=== PATIENT | female | born 1945 | race Caucasian/White ===

== ENCOUNTER 2023-10-29 14:18 | Emergency (ER) | payer MEDICARE, SELFPAY ==
[2023-10-29 14:19] VITALS: BP 141/66; PULSE 93; RESP 16; TEMP 36.4; O2SAT 92; O2SAT 98; BMI 19.1
--- NOTE | 2023-10-29 15:16 | EKG12_ITS ---
Test Reason : Blood Pressure : / mmHG Vent. Rate : 092 BPM Atrial Rate : 092 BPM P-R Int : 114 ms QRS Dur : 076 ms QT Int : 332 ms P-R-T Axes : 089 064 066 degrees QTc Int : 410 ms Normal sinus rhythm Minimal voltage criteria for LVH, may be normal variant ( Sokolow-Engle ) Borderline ECG Confirmed by CAM STEPHENSON MD ([id number]), editor house organ BISI KHAN ([id number]) on 10/31/2023 6:10:07 AM Referred By: Confirmed By:CAM STEPHENSON MD
--- NOTE | 2023-10-29 15:17 | EX.ED.DYSGE1 ---
HPI <MANI Mock - Last Filed: 10/29/23 17:54> History of Present Illness Chief Complaint: Alt LOC Narrative Narrative: Patient is a 78-year-old female with history of respiratory failure on 2 to 5 L of nasal cannula oxygen daily, hypertension, hyperlipidemia who presents to the emergency department for lethargic, confusion. Per the son, the patient supposed to be on BiPAP 4 hours daily, however this has not been happening. They started giving the patient breathing treatments last evening. Patient denies any chest pain, patient denies any worsening shortness of breath. PFSH <MANI Mock - Last Filed: 10/29/23 17:54> PFSH Allergy/AdvReac Type Severity Reaction Status Date / Time iron [From Venofer] Allergy Intermediate NEEDS Verified 10/29/23 14:25 FOLLOW-UP varenicline [From Chantix] Allergy Intermediate NEEDS Verified 10/29/23 14:25 FOLLOW-UP Social History Smoking Status: Former smoker ROS <MANI Mock - Last Filed: 10/29/23 17:54> ROS ED ROS Narrative Constitutional: Negative for fever, chills, weight loss, weakness Eyes: Negative for vision loss, vision change, double vision ENT: Negative for any sore throat, ear pain, congestion Cardiovascular: Negative for any chest pain, tightness, palpitations Respiratory: Negative for any cough, sputum production, hemoptysis, dyspnea, dyspnea on exertion, orthopnea Gastrointestinal: Negative for any abdominal pain, nausea, vomiting, diarrhea, constipation, blood in stool, blood in vomit : Negative for any urinary frequency, dysuria, retention, blood in urine Muscle skeletal: Negative for any myalgias, arthralgias, neck pain, back pain Neurological: Negative for any headache, syncope, paresthesias, dizziness. Patient states that she can tell she is not thinking clearly Skin: Negative for any rashes, lumps, itching, abrasions, lacerations Psychiatric: Negative for any depression, anxiety, stress, suicidal ideation, homicidal ideation Hematologic: Negative for any easy bruising, excessive bruising, easy bleeding Allergies: Negative for any eczema, hives, rash EXAM <MANI Mock Last Filed: 10/29/23 17:54> Physical Exam Narrative Exam Narrative: Vital signs reviewed. Patient is cachectic appearing, vital signs are stable on monitor. Patient is alert and orient x 4 here. HEET: Head normocephalic atraumatic, TMs clear bilaterally. Posterior pharynx is clear, dry mucous membranes. Nares clear bilaterally. Neck: Supple with no lymphadenopathy or tenderness. No signs of meningismus. Cardiac: Regular rate and rhythm no murmurs gallops or rubs, equal peripheral pulses bilaterally. Respiratory: Diminished lung sounds in the bases. Slight expiratory wheeze to the left upper lobe. No chest tenderness. Abdomen: Soft, nontender, nondistended. No abdominal bruit or pulsatile masses. No hepatosplenomegaly Extremities: No peripheral edema, no signs of gross trauma or deformity. Active full range of motion of all extremities. Neuro: Cranial nerves II through XII intact, no focal neurological deficits. Skin: Clean dry and intact with no rash, purpura, petechiae, vesicles or pustules. Backs/flank: No CVA tenderness, no midline spinal tenderness, no deformity. Psych: Normal mood and affect. No SI, HI or acute psychosis. Const Vital Signs: 10/29/23 14:19 Temperature 97.5 F L Temperature Source Temporal Pulse Rate 93 Respiratory Rate 16 Blood Pressure 141/66 H Blood Pressure Mean 91 Pulse Ox 98 Oxygen Delivery Method Nasal Cannula Oxygen Flow Rate (L/min) 2 Positive cachectic General Appearance ED: cachectic Nutritional Appearance: cachectic <Dr. Javan Wilkins MD - Last Filed: 10/29/23 18:18> Physical Exam Const Vital Signs: 10/29/23 14:19 Temperature 97.5 F L Temperature Source Temporal Pulse Rate 93 Respiratory Rate 16 Blood Pressure 141/66 H Blood Pressure Mean 91 Pulse Ox 98 Oxygen Delivery Method Nasal Cannula Oxygen Flow Rate (L/min) 2 MDM <MANI Mock - Last Filed: 10/29/23 17:54> [facility] Lab Data Labs: Laboratory Results - last 24 hr 10/29/23 10/29/23 15:28 16:23 WBC 4.2 L RBC 3.34 L Hgb 10.2 L Hct 32.6 L MCV 97.6 MCH 30.5 MCHC 31.3 L RDW Std Deviation 52.1 H RDW Coeff of [place] 14.6 Plt Count 214 MPV 10.6 Immature Gran % (Auto) 0.200 Neut % (Auto) 73.2 H Lymph % (Auto) 14.5 L [place] % (Auto) 9.5 Eos % (Auto) 2.1 Baso % (Auto) 0.5 Absolute Neuts (auto) 3.1 Absolute Lymphs (auto) 0.61 L Nucleated RBC % 0 Sodium 141 Potassium 4.2 Chloride 98 Carbon Dioxide 40.0 H Anion Gap 3 L BUN 7 Creatinine 0.41 L Estim Creat Clear Calc 40.07 Est GFR (MDRD) Af Amer 193 Est GFR (MDRD) Non-Af 160 BUN/Creatinine Ratio 17.1 Glucose 88 Calcium 9.3 Troponin I High Sens 20 Urine Color Yellow Urine Clarity Clear Urine pH 6.5 Ur Specific [place] 1.015 Urine Protein 100 H Urine Glucose (UA) Normal Urine Ketones Negative Urine Occult Blood 10 H Urine Nitrite Negative Urine Bilirubin Negative Urine Urobilinogen Normal Ur Leukocyte Esterase 25 H Urine RBC 0 SEEN Urine WBC 0 SEEN Ur Squamous Epith Cells 0 SEEN Urine Bacteria 0 SEEN Urine Mucus 0 SEEN ABG Data ABG results: ABG 10/29/23 15:49 Specimen Type MANPREET Sample Site Not entered O2 % 3.0 VBG pH 7.43 H VBG pO2 37 VBG HCO3 42 H VBG Total CO2 44 H VBG O2 Sat (Calc) 69 VBG Base Excess 18 H POC Mix VBG pCO2 Pt Tmp 64.1 H O2 Delivery Device Cannula Radiography Diagnostic Testing: Clinical Impression(s) from Imaging Studies Chest X-Ray 10/29/23 15:44 IMPRESSION: Hyperinflated lungs may be secondary to underlying COPD. Electronically Signed: Bernie Sapmson MD at 16:22 EST Reading Location ID and State: [facility] / [place] Tel , Service support , Brain CT 10/29/23 15:49 IMPRESSION: Small vessel ischemia. Electronically Signed: Bernie Sampson MD at 16:49 EST , Treatment and Re-Evaluation :: Patient appears to be in no obvious respiratory distress. Vital signs are stable. Patient seems to be alert and orient x 4. I will speak with the patient and she appears to understand evidence going on. Presenting to the emergency department for lethargic, confusion. Differential diagnose includes hypercapnia, hypoxia, pneumonia, UTI, other viral-like illness. Patient received some basic laboratory values, troponin, EKG. 1 view chest x-ray, patient will receive a rapid COVID/influenza, RSV. I will order a VBG to see the patient's CO2. Patient mentation remains stable, patient is alert and orient x 4. VBG shows a normal pH at 7.428, CO2 64.1, this might be baseline. O2 was 37 bicarb was 42.4. CBC was unremarkable shows slight anemia this is chronic. Chemistries were unremarkable, troponin was negative. Patient's chest x-ray showed hyperinflated lungs secondary to COPD. Patient on her 3 L is mentating well. CT scan the brain was unremarkable urinalysis was negative for any infection. I spoke with the patient again, she remained stable, she has to be eat, she like to drink water. At this time, do not believe there is any acute process. Patient will be discharged back to the facility. All questions answered, spoke with the patient's family, patient stable for discharge <Dr. Javan Wilkins MD - Last Filed: 10/29/23 18:18> [facility] Lab Data Labs: Laboratory Results - last 24 hr 10/29/23 10/29/23 15:28 16:23 WBC 4.2 L RBC 3.34 L Hgb 10.2 L Hct 32.6 L MCV 97.6 MCH 30.5 MCHC 31.3 L RDW Std Deviation 52.1 H RDW Coeff of [place] 14.6 Plt Count 214 MPV 10.6 Immature Gran % (Auto) 0.200 Neut % (Auto) 73.2 H Lymph % (Auto) 14.5 L [place] % (Auto) 9.5 Eos % (Auto) 2.1 Baso % (Auto) 0.5 Absolute Neuts (auto) 3.1 Absolute Lymphs (auto) 0.61 L Nucleated RBC % 0 Sodium 141 Potassium 4.2 Chloride 98 Carbon Dioxide 40.0 H Anion Gap 3 L BUN 7 Creatinine 0.41 L Estim Creat Clear Calc 40.07 Est GFR (MDRD) Af Amer 193 Est GFR (MDRD) Non-Af 160 BUN/Creatinine Ratio 17.1 Glucose 88 Calcium 9.3 Troponin I High Sens 20 Urine Color Yellow Urine Clarity Clear Urine pH 6.5 Ur Specific [place] 1.015 Urine Protein 100 H Urine Glucose (UA) Normal Urine Ketones Negative Urine Occult Blood 10 H Urine Nitrite Negative Urine Bilirubin Negative Urine Urobilinogen Normal Ur Leukocyte Esterase 25 H Urine RBC 0 SEEN Urine WBC 0 SEEN Ur Squamous Epith Cells 0 SEEN Urine Bacteria 0 SEEN Urine Mucus 0 SEEN ABG Data ABG results: ABG 10/29/23 15:49 Specimen Type MANPREET Sample Site Not entered O2 % 3.0 VBG pH 7.43 H VBG pO2 37 VBG HCO3 42 H VBG Total CO2 44 H VBG O2 Sat (Calc) 69 VBG Base Excess 18 H POC Mix VBG pCO2 Pt Tmp 64.1 H O2 Delivery Device Cannula Radiography Diagnostic Testing: Clinical Impression(s) from Imaging Studies Chest X-Ray 10/29/23 15:44 IMPRESSION: Hyperinflated lungs may be secondary to underlying COPD. Electronically Signed: Bernie Sampson MD at 16:22 EST , Brain CT 10/29/23 15:49 IMPRESSION: Small vessel ischemia. Electronically Signed: Bernie Sampson MD at 16:49 EST , Treatment and Re-Evaluation Comments:: I have personally performed a face to face assessment of the patient and have reviewed the SON Note. I performed a substantive portion of the visit including all aspects of the following. My mendoza findings include: History is confused for the past 2 days. Apparently just arrived at this nursing facility 2 days ago from a rehab facility where she had BiPAP for 4-8 hours/day, but now the current facility is unable to get approval for it so she has been without it. She has been getting Valium with each use of BiPAP due to being claustrophobic. Patient denies any focal complaints right now just saying that she does not feel great but she denies any dyspnea, chest tightness, nausea, vomiting, abdominal pain, headache. Exam is keenly alert, able to converse no aphasia, normal peripheral neurologic exam, neck is supple full range of motion. Lungs are clear but diminished throughout symmetrically. Heart is regular, abdomen benign. Medical Decison Making broad differential as above which I agree with. Labs, EKG, chest x-ray, urinalysis, CT of the head obtained. VBG shows neutral pH, showing that her end-tidal CO2 in the high 40s or low 50s is likely her baseline and she is compensated. BZD withdrawal is in differential, but if she is doing okay without BiPAP and not requiring benzodiazepines right now I do not know that I would necessarily give them just because of the symptoms unless she starts having more significant withdrawal symptoms such as seizures. Other additions or changes: [None] Discharge Plan Triage Chief Complaint: Alt LOC ED Midlevel Provider: Klever Reed ED Provider: Javan Wilkins Dx/Rx/DC Orders Clinical Impression: Chronic hypercapnic respiratory failure, COPD (chronic obstructive pulmonary disease) Instructions: COPD: Coping with Fatigue, Asthma and COPD Primary Care Provider: Anthony Moralez Referrals: Anthony Moralez MD [Primary Care Provider] - Activity Restrictions/Additional Instructions: Your VBG showed a CO2 of 64.1, you are alert and oriented, continue to be on your oxygen. Return for any worsening symptoms Disposition Disposition: Home, Self Care
--- NOTE | 2023-10-29 15:20 | ED.RN ---
NO OLD EKG
[2023-10-29 15:39] LABS: Absolute Lymphocyte Count 0.61 X10^3/uL (0.83-4.51); Absolute Neutrophil Count 3.1 X10^3/uL (2.0-7.7); Basophil# 0.02 X10^3/uL; Basophil% 0.5 % (0-1); Eosinophil# 0.09 X10^3/uL; Eosinophils% 2.1 % (0-5); Hematocrit 32.6 % (37-47); Hemoglobin 10.2 g/dL (12.0-15.0); Lymphocyte # 0.61 X10^3/ul (0.83-4.51); Lymphocyte % 14.5 % (19-41); Mean Corp Hgb Conc 31.3 g/dL (32-36); Mean Corpuscular Hgb 30.5 pg (27.0-32.0); Mean Corpuscular Volume 97.6 fL (81-99); Mean Platelet Vol. 10.6 fl (6.2-12.0); Monocyte% 9.5 % (0-10); NRBC Flagged by Analyzer 0 % (0-5); Neutrophil # 3.07 X10^3/uL (2.7-7.7); Neutrophil % 73.2 % (47-70); Platelet Count 214 K/mm3 (150-450); RBC Distribution Width CV 14.6 % (11.6-14.6); RBC Distribution Width SD 52.1 fl (35.1-43.9); Red Blood Count 3.34 M/mm3 (4.2-5.4); White Blood Count 4.2 K/mm3 (4.4-11.0)
--- NOTE | 2023-10-29 15:44 | RAD_ITS ---
INDICATION: shortness of breath EXAMINATION/TECHNIQUE: X-RAY - XR Chest 1 View COMPARISON: No relevant prior comparison study available FINDINGS: LUNGS: The lungs are hyperinflated. No consolidation, edema or effusion. No pneumothorax. MEDIASTINUM AND CARDIOVASCULAR STRUCTURES: Cardiac silhouette not enlarged. Central airways and mediastinal contour are unremarkable. BONES AND SOFT TISSUES: Unremarkable. RAD/Chest 1 View (Portable) IMPRESSION: Hyperinflated lungs may be secondary to underlying COPD. Electronically Signed: Bernie Sampson MD at 16:22 EST ,
--- NOTE | 2023-10-29 15:49 | CT_ITS ---
INDICATION: confusion EXAMINATION: CT BRAIN - CT Head or Brain W/O Contrast Injection TECHNIQUE: Multiple axial images were obtained of the head without intravenous contrast. A radiation dose optimization technique was used for this scan. IV Contrast dosage and agent: None. RADIATION DOSAGE (If Supplied By Facility): CTDIvol = ( 44.99 ) mGy, DLP = ( 745.49 ) mGycm COMPARISON: No relevant prior comparison study available FINDINGS: BRAIN PARENCHYMA: No intra- or extra-axial hemorrhage. There are patchy foci of low attenuation within the white matter of the cerebral hemispheres, a nonspecific finding most commonly reflecting small vessel ischemia. No evidence of acute infarct. No intracranial mass or mass effect. There is preservation of the rascon/white matter interface. Posterior fossa structures are unremarkable. CSF SPACES: Appropriate for age. No hydrocephalus. Basal cisterns are patent. CALVARIUM, SKULL BASE, PARANASAL SINUSES AND MASTOID AIR CELLS: Clear. No discrete lytic or blastic abnormalities. ORBITS: Both globes, extraocular muscles, optic nerves and retrobulbar fat appear unremarkable. ASPECTS Score for Acute Strokes: 10 CT/Brain/Head without Contrast IMPRESSION: Small vessel ischemia. Electronically Signed: Bernie Sampson MD at 16:49 EST ,
[2023-10-29 15:52] LABS: Blood Gas Specimen Type VEN; O2 Delivery Device Cannula; SITE Not entered; VBG BASE EXCESS 18 mmol/L (-1.0-3.5); VBG Bicarbonate 42 mmol/L (22-26); VBG PO2 37 mmHg (25-40); VBG SO2 69 % (50-70); VBG TCO2 44 mmol/L (23-33); VBG pCO2 64.1 mmHg (41-51); VBG pH 7.43 (7.32-7.42)
[2023-10-29 16:30] LABS: Bacteria 0 SEEN /hpf (None Seen); Mucous, Urine 0 SEEN /hpf (<or=2+); Red Blood Cells-Urine 0 SEEN /hpf (0-5); Squamous Epithelial Cells - UA 0 SEEN /hpf (5-10); White Blood Cells 0 SEEN /hpf (0-5)
[2023-10-29 16:42] LABS: Color, Urine Yellow (Yellow); Glucose, Dipstick Normal (Normal); Ketone-Dipstick Negative (Negative); Leukocyte Esterase-Dipstick 25 /ul (Negative); Nitrite-Dipstick Negative (Negative); Occult Blood-Urine 10 /ul (Negative); Protein-Dipstick 100 mg/dl (Negative); Specific Gravity, Urine 1.015 (1.002-1.030); Urine Bilirubin Dipstick Negative (Negative); Urine Clarity Clear (Clear); Urine Urobilinogen Normal (Normal); Urine pH 6.5 (5.0 - 8.0)
[2023-10-29 17:40] LABS: Anion Gap 3 (5-15); BUN 7 mg/dL (7-18); BUN/Creat Ratio 17.1 RATIO (10-20); Calcium,Total 9.3 mg/dL (8.5-10.1); Chloride 98 mmol/L (98-107); Creatinine, Serum 0.41 mg/dL (0.55-1.02); EST Glomerular Filtration Rate 160 mL/min (>60); Est Glom Filt Rate - Afr Amer 193 mL/min (>60); Estimated Creatinine Clearance 40.07 ml/min; Glucose 88 mg/dL (74-106); Potassium 4.2 mmol/L (3.5-5.1); Sodium Level 141 mmol/L (136-145); Troponin-I HS 20 pg/mL (3.0-54.0)
--- NOTE | 2023-10-29 18:13 | ED.RN ---
[facility] CALLED, ETA 1 HOUR ([id number])
--- NOTE | 2023-10-29 18:38 | ED.RN ---
PT NORMALLY ON 2L O2. DECREASED O2 TO MONITOR SATS.
[2023-10-29 18:54] VITALS: BP 139/91; PULSE 108; RESP 18; O2SAT 96
--- NOTE | 2023-10-29 19:48 | ED.RN ---
Report called to RN at [facility].
== END 2023-10-29 19:26 | disposition home or self-care (01) ==
PROVIDERS: Nurse Practitioner; Emergency Provider Emergency Medicine; PCP Internal Medicine; Visit Provider Emergency Medicine
DX: J96.12 Chronic respiratory failure with hypercapnia (principal); J44.9 Chronic obstructive pulmonary disease, unspecified; Z99.81 Dependence on supplemental oxygen; Z87.891 Personal history of nicotine dependence
CPT/HCPCS: 70450; 71045; 80048; 81001; 82803; 84484; 85025; 87631; 93005; 99283

== ENCOUNTER 2024-01-07 12:15 | Inpatient (IN) | payer MEDICARE, SELFPAY ==
[2024-01-07 12:41] VITALS: BP 154/72; PULSE 82; RESP 20; TEMP 37.1; O2SAT 100; BMI 19.0
[2024-01-07] MEDS: Acetaminophen 325 MG Tablet 650 MG PO ×2 (14:18→21:37)
[2024-01-07] MEDS: Albuterol 2.5 MG/3 ML VIAL.NEB. INHALATION ×2 (14:30→18:41)
[2024-01-07] MEDS: Sertraline 50 MG Tablet 25 MG PO (14:34)
[2024-01-07] MEDS: Sertraline 100 MG Tablet PO (14:34)
[2024-01-07 14:49] VITALS: PULSE 88; RESP 20; O2SAT 97
[2024-01-07] MEDS: 0.9% Saline Lock 10 ML Syringe IV ×2 (15:27→21:58)
[2024-01-07 15:33] VITALS: O2SAT 99
[2024-01-07 18:41] VITALS: PULSE 87; RESP 20
[2024-01-07] MEDS: Enoxaparin 30 MG/0.3 ML Syringe SC (21:44)
[2024-01-07] MEDS: Sodium Chloride 1 GM Tablet PO (21:45)
[2024-01-07] MEDS: MELATONIN 3 MG TABLET PO (21:45)
[2024-01-07 22:00] VITALS: BP 123/75; PULSE 79; RESP 18; TEMP 37; O2SAT 100
[2024-01-08 05:21] LABS: Hematocrit 30.1 % (37-47); Hemoglobin 9.3 g/dL (12.0-15.0); Mean Corp Hgb Conc 30.9 g/dL (32-36); Mean Corpuscular Hgb 28.8 pg (27.0-32.0); Mean Corpuscular Volume 93.2 fL (81-99); Mean Platelet Vol. 11.1 fl (6.2-12.0); Platelet Count 159 K/mm3 (150-450); RBC Distribution Width CV 14.5 % (11.6-14.6); Red Blood Count 3.23 M/mm3 (4.2-5.4); White Blood Count 5.7 K/mm3 (4.4-11.0)
[2024-01-08 05:39] LABS: ALB/GLOB Ratio 1.1 RATIO (0.9-2.4); AST(SGOT) 22 U/L (15-37); Alanine Aminotransfer ALT/SGPT 26 U/L (13-56); Alkaline Phosphatase 57 U/L (45-117); Anion Gap 4 (5-15); BUN 6 mg/dL (7-18); BUN/Creat Ratio 16.2 RATIO (10-20); Calcium,Total 8.7 mg/dL (8.5-10.1); Chloride 87 mmol/L (98-107); Creatinine, Serum 0.37 mg/dL (0.55-1.02); EST Glomerular Filtration Rate 179 mL/min (>60); Est Glom Filt Rate - Afr Amer 217 mL/min (>60); Estimated Creatinine Clearance 39.77 ml/min; Globulin 2.8 g/dL (2.2-4.2); Glucose 101 mg/dL (74-106); Magnesium 1.8 mg/dL (1.6-2.6); Phosphorus 3.3 mg/dL (2.5-4.9); Potassium 3.5 mmol/L (3.5-5.1); Protein, Total 5.8 g/dL (6.4-8.2); Sodium Level 130 mmol/L (136-145)
[2024-01-08 06:53] VITALS: PULSE 80; RESP 18; O2SAT 99
[2024-01-08] MEDS: Albuterol 2.5 MG/3 ML VIAL.NEB. INHALATION ×4 (06:53→19:12)
[2024-01-08] MEDS: Multivitamins,Therapeutic Tablet 1 TABLET PO (08:10)
[2024-01-08] MEDS: Lidocaine 5% Patch 1 PATCH TOPICAL (08:11)
[2024-01-08] MEDS: Sodium Chloride 1 GM Tablet PO ×2 (08:11→20:12)
[2024-01-08] MEDS: Acetaminophen 325 MG Tablet 650 MG PO ×3 (08:12→20:20)
[2024-01-08] MEDS: Senna/Docusate Sodium 1 Tablet 2 TABLET PO ×2 (08:13→20:12)
[2024-01-08] MEDS: Enoxaparin 30 MG/0.3 ML Syringe SC ×2 (08:32→20:13)
[2024-01-08] MEDS: Menthol/Lanolin/Calamine/Znox 113 GM Tube 1 APPLIC TOPICAL ×2 (08:32→20:17)
[2024-01-08 10:00] VITALS: BP 144/85; PULSE 77; RESP 18; TEMP 36.6; O2SAT 98; O2SAT 99
[2024-01-08 11:42] VITALS: PULSE 86; RESP 18
[2024-01-08] MEDS: Sertraline 50 MG Tablet 25 MG PO (12:38)
[2024-01-08] MEDS: Sertraline 100 MG Tablet PO (12:38)
[2024-01-08 14:57] VITALS: PULSE 87; RESP 22
[2024-01-08 19:12] VITALS: PULSE 76; RESP 24
[2024-01-08 19:56] VITALS: BP 130/75; PULSE 82; RESP 17; TEMP 36.7; O2SAT 98
[2024-01-08] MEDS: Atorvastatin Calcium 10 MG Tablet PO (20:12)
[2024-01-08] MEDS: MELATONIN 3 MG TABLET PO (20:12)
--- NOTE | 2024-01-09 01:52 | NURSING ---
Pt is laying awake in bed. Lights above the TV and the TV is turned on. Door and curtain to room are open. Pt's cell phone is within reach. Offered to turn off TV and/or lights to promote some sleep hygiene strategies and pt declines. Likes to have the door and curtains open. Pt verbalizes concerns with fear of the unknown while here in IRU. Briefly educated on the importance of maintaining safety and participation in therapy to remain on unit. Pt expresses frustration w/ fluid restriction and notes that when she consumes meat, she consumes more water to assist w/ swallowing. Educated pt on the rationale of the fluid restriction in addition to the sodium tablets ordered to help improve sodium levels to prevent potential complications that may occur if the sodium level continues to drop. Pt notes she is anxious to return to [facility] as she has not been there since before . Emotional support and active listening provided. Will continue to monitor.
[2024-01-09] MEDS: Acetaminophen 325 MG Tablet 650 MG PO ×4 (02:38→20:19)
--- NOTE | 2024-01-09 06:00 | NURSING ---
Pt is requesting a cup of coffee this am. Informed pt the volume will count toward the fluid restriction. Pt declines to have coffee at this time. Pt then asks to toilet. BSC used d/t level of fatigue- slept poorly through the night. Requires mod to max cueing to transfer from bed to BSC, then back to bed. Positioned for comfort in bed. Bed alarm actived. Call light w/ in reach. Will continue to monitor.
[2024-01-09 07:43] VITALS: BP 130/70; PULSE 86; RESP 20; TEMP 36.4; O2SAT 100
[2024-01-09 08:15] VITALS: PULSE 97; RESP 18; O2SAT 99
[2024-01-09] MEDS: Albuterol 2.5 MG/3 ML VIAL.NEB. INHALATION ×2 (08:25→19:25)
[2024-01-09] MEDS: Multivitamins,Therapeutic Tablet 1 TABLET PO (08:31)
[2024-01-09] MEDS: Lidocaine 5% Patch 1 PATCH TOPICAL (08:31)
[2024-01-09] MEDS: Cholecalciferol (VIT D3) 25 MCG TABLET (1,000 UNITS) PO (08:31)
[2024-01-09] MEDS: Enoxaparin 30 MG/0.3 ML Syringe SC (08:31)
[2024-01-09] MEDS: Senna/Docusate Sodium 1 Tablet 2 TABLET PO (08:32)
[2024-01-09] MEDS: Sodium Chloride 1 GM Tablet PO ×2 (08:32→21:27)
[2024-01-09] MEDS: Menthol/Lanolin/Calamine/Znox 113 GM Tube 1 APPLIC TOPICAL ×2 (08:32→21:28)
[2024-01-09 09:55] VITALS: O2SAT 100
--- NOTE | 2024-01-09 10:15 | PCM.HP.STD ---
HPI - General General Date of Admission: 01/07/24 HPI Narrative LYDIA RANDOLPH, is a 78 YO F with a PMH of peripheral artery disease, stenosis of the brachiocephalic artery, tobacco dependence, hypertension, bilateral carotid artery stenosis, carotid endarterectomy in 2018, iron deficiency anemia, history of carotid endarterectomy, closed fracture of thoracic vertebrae in June 2023, history of lumbar laminectomy L4, 5 and S1, occlusion of the left subclavian artery, history of an intravascular stent placement in July 2023, COPD with hypoxia and hypercapnia, depression, chronic hyponatremia, vitamin D deficiency, chronic low back pain, mixed hyperlipidemia, restless leg syndrome, coronary artery disease and anxiety/depression who presented to an emergency department on 12/31/2023 with confusion and shortness of breath. She had facial bruising and imaging showed an intracerebral hemorrhage (subdural hematoma/subarachnoid hemorrhage) along with acute on chronic thoracic fractures (T2-T10). She had waxing and waning periods of mentation but repeat CT imaging demonstrated stability. While at [facility] she was seen by PT/OT/ST and acute inpt rehab was recommended at [facility]. She was transferred to [facility] acute rehab on 01/07/24 for 3 hours of therapy daily to restore function at or near her level prior to the recent bleed. I am hopeful she can be rehabilitated to the point where she will be able to go home with assistance from family. Previously taking Remeron, Celebrex, Miralax and ASA and these were stopped at [facility] prior to admitting to rehab. Buspar had been stopped in the past due to increased drowsiness. Remeron was discontinued on 01/05/2024 for drowsiness. New medications added at [facility] work vitamin D 800 international units daily, lactulose 30 cc 3 times daily for an elevated ammonia level, salt tablets and a lidocaine patch. Primary diagnoses from [facility] are subdural hematoma, exacerbation of COPD, anxiety, fall, closed fracture of thoracic vertebrae, SIADH and protein calorie malnutrition. She refused an MRI of the thoracic spine at the previous facility due to severe claustrophobia. She was a patient at [facility] in October 2023. Seen in the emergency department on 10/29/2023 for confusion and lethargy. She was admitted to [facility] on 11/01/2023 (it was a readmission for her). She was admitted to [facility] on 10/10/2023 for exacerbation of COPD with acute on chronic respiratory failure. She continues to smoke. She tells me that she was told to take Buspar when needed and she only took it twice because it made her sleepy and tired. She was just recently started on Remeron for insomnia and she did sleep better at night however she felt groggy when waking up in the AM and had a JJ. Prior to last June when she had a bad fall and fractured several thoracic vertebrae she was living at home alone. She was able to complete her ADL's and do her laundry and some light house work. Her son did her grocery shopping and managed her finances and banking. She used to see a carpenter inspector but, did not feel that he was helping her so she quit going.....the last time she saw a carpenter inspector was about 4 years ago. she uses no aerosols at home and she had a Breztri inhaler but did not feel it was helping her so she has not been using that. She is on no medication for COPD. Prior to her fall she was using 2 L of oxygen at home and doing fine. Since then her oxygen has been increased to 3 L but she is 98 to 100% saturated on 3 L at rest. Seems to have polypharmacy in the face of chronic respiratory failure with hypoxia and hypercapnia. She tells me that she quit smoking about 1 year ago. Has been on oxygen for 3-4 years. All lab drawn at admission was personally reviewed. The white blood cell count is normal at 5.7. Hemoglobin is 9.3 with an MCV of 93.2 which is down from 99.4 on 11/10/2023. Hemoglobin is stable. Platelet count is within normal limits and the RDW is normal. Sodium is low at 130 and the potassium is 3.5. Chloride is also low at 87. Serum bicarb is elevated at 39. BUN is 6 with a creatinine of 0.37 and a BUN/creatinine ratio of 16. Creatinine clearance is 39. Phosphorus was normal and the magnesium is 1.8. Calcium was within normal limits. Serum bicarb is markedly elevated at 39. Ammonia was normal lab 15. LFTs are normal. In October of this year her sodium was 141. the hyponatremia at the previous hospital was thought to be due to cerebral salt wasting from the cerebral bleed. [facility] Medical History Anxiety and depression Arterial stenosis Carotid artery stenosis Chronic back pain Chronic hyponatremia Chronic respiratory failure with hypoxia and hypercapnia Colon, diverticulosis Coronary artery disease HTN (hypertension) Mixed hyperlipidemia Normochromic normocytic anemia Peripheral arterial disease Restless leg syndrome Thoracic compression fracture Tobacco dependence due to cigarettes Vitamin D deficiency Home Medications acetaminophen 325 mg tablet 650 mg PO Q6H PRN pain 01/07/24 [History Last Taken Unknown] albuterol sulfate 2.5 mg/3 mL (0.083 %) solution for nebulization 2.5 mg inhalation 4X/DAY wheezing 01/07/24 [History Last Taken Unknown] atorvastatin 10 mg tablet 10 mg PO QHS cholesterol 01/07/24 [History Last Taken Unknown] tqzmtiymkj-vnkvwfp-gbsjjlsacsagm 10 mg-2.5 mg lozenges 1 hector mucous membrane 4X/DAY PRN sore throat 01/07/24 [History Last Taken Unknown] budesonide 160 mcg-glycopyr 9 mcg-formot 4.8 mcg/actuation HFA inhaler (Breztri Aerosphere) 1 inh inhalation DAILY PRN shortness of breath 01/07/24 [History Last Taken Unknown] cholecalciferol (vitamin D3) 10 mcg (400 unit) capsule 800 unit PO DAILY vitamin 01/07/24 [History Last Taken Unknown] lidocaine 4 % topical patch 1 patch topical DAILY back pain 01/07/24 [History Last Taken Unknown] melatonin 3 mg tablet 3 mg PO QHS sleep 01/07/24 [History Last Taken Unknown] multivitamin (Daily Multi-Vitamin tablet) 1 tab PO DAILY vitamin 01/07/24 [History Last Taken Unknown] sertraline 100 mg tablet 100 mg PO DAILY mood 01/07/24 [History Last Taken Unknown] sertraline 25 mg tablet 25 mg PO DAILY mood 01/07/24 [History Last Taken Unknown] sodium chloride 1,000 mg soluble tablet 1,000 mg PO BID vitamin 01/07/24 [History Last Taken Unknown] Allergy/AdvReac Type Severity Reaction Status Date / Time iron [From Venofer] Allergy Intermediate NEEDS Verified 10/29/23 14:25 FOLLOW-UP varenicline [From Chantix] Allergy Intermediate NEEDS Verified 10/29/23 14:25 FOLLOW-UP Family History Mother Diabetes Hypertension Cancer Father Alzheimers disease Gout Family History unable to obtain Surgical History History of appendectomy History of carotid endarterectomy History of cataract extraction History of laminectomy History of tonsillectomy History of tubal ligation Surgical History unable to obtain Social History (Updated 01/09/24 @ 15:[address] Jaymie Galvez DO) housing: assisted living facility number of children: 2 Smoking Status: Former smoker how long ago did patient quit smokin year ago alcohol intake: never substance use type: does not use ROS Constitutional Constitutional: Reports anorexia, change in weight, daytime sleepiness, difficulty sleeping, fatigue, headache(s), poor appetite and weight loss Eyes Eyes: Denies burning, change in vision, diplopia or discharge from eye(s) ENT HEENT: Reports dry mouth, headache(s) and mouth pain; Denies dysphagia Cardiovascular Cardiovascular: Reports dyspnea on exertion and hypertension; Denies abdominal pain, chest pain, orthopnea or pedal edema Respiratory/Chest Respiratory/Chest: Reports change in mental status, dyspnea on exertion, portable oxygen @ home and shortness of breath with exertion; Denies cough or wheezing Gastrointestinal Gastrointestinal: Reports constipation and weight changes; Denies change in bowel habits, diarrhea, fecal incontinence, melena, nausea, odynophagia, rectal bleeding or vomiting Genitourinary Genitourinary: Denies difficulty urinating or dysuria Musculoskeletal Musculoskeletal: Reports back pain, joint pain, muscle weakness and other Details: She complains of pain in her feet which she states limits her ability to ambulate. Integumentary Integumentary: Reports dry skin; Denies jaundice, rash or wounds Neurologic Neurologic: Reports confusion, headache(s), memory loss and weakness; Denies focal weakness, loss of vision, paresthesias, radicular pain, seizures or vertigo Hematologic/Lymphatic Hematologic/Lymphatic: Reports anemia Allergic/Immunologic Allergic/Immunologic: Reports wheezing; Denies seasonal rhinorrhea, rhinitis, hives or eczemia Vital Signs Vital Signs Vital Signs: 01/08/24 11:42 01/08/24 14:57 01/08/24 19:53 Temperature Temperature Source Pulse Rate 86 87 Pulse Strength Respiratory Rate 18 22 H Respiratory Effort Normal Non-Labored Respiratory Depth Normal Respiratory Pattern Normal Tachypnea Normal Blood Pressure Blood Pressure Mean Blood Pressure Source Blood Pressure Position Blood Pressure Location Pulse Ox Oxygen Delivery Method Nasal Cannula Oxygen Flow Rate (L/min) 3 01/08/24 19:56 01/08/24 19:12 01/09/24 07:43 Temperature 98.0 F 97.6 F L Temperature Source Oral Temporal Pulse Rate 82 76 86 Pulse Strength Respiratory Rate 17 24 H 20 H Respiratory Effort Respiratory Depth Respiratory Pattern Tachypnea Blood Pressure 130/75 H 130/70 H Blood Pressure Mean 93 90 Blood Pressure Source Monitor Monitor Blood Pressure Position Semi-Fowlers Semi-Fowlers Blood Pressure Location Left Arm Left Arm Pulse Ox 98 100 Oxygen Delivery Method Nasal Cannula Nasal Cannula Oxygen Flow Rate (L/min) 3 3 01/09/24 08:15 01/09/24 08:15 01/09/24 08:43 Temperature Temperature Source Pulse Rate 97 Pulse Strength Respiratory Rate 18 Respiratory Effort Respiratory Depth Respiratory Pattern Normal Blood Pressure Blood Pressure Mean Blood Pressure Source Blood Pressure Position Blood Pressure Location Pulse Ox 99 Oxygen Delivery Method Nasal Cannula Oxygen Flow Rate (L/min) 3 3 01/09/24 09:55 01/09/24 09:55 Temperature Temperature Source Pulse Rate Pulse Strength Normal (2+) Respiratory Rate Respiratory Effort Normal Non-Labored Respiratory Depth Normal Respiratory Pattern Normal Blood Pressure Blood Pressure Mean Blood Pressure Source Blood Pressure Position Blood Pressure Location Pulse Ox 100 Oxygen Delivery Method Nasal Cannula Oxygen Flow Rate (L/min) 3 Weight Weight: 94 lb 5 oz Body Mass Index (BMI) 19.0 Physical Exam Const alert Constitutional Narrative: Thin body habitus. She is very anxious and does not like to be alone. She is frequently calling the nurses station for things like elvating the head of her bed, taking the cold rag off her forehead and just to have someone come sit with her. When she gets anxious the RR increases. General Appearance: well kempt and anxious; Negative for diaphoretic HEENT normocephalic and hearing grossly normal bilaterally HEENT Narrative: Dry MM. the tongue and lips are somewhat erythematous. She has a small purpleish pimple under her tongue that is painful. She is edentulous and has upper and lower dentures. Eyes PERRL, EOMs intact bilaterally, conjunctivae normal and no scleral icterus Eyes Narrative: No discharge from the eyes and no mattering of the eyelashes. 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 She also tells me that she had a stent in the right carotid. Chest Chest: symmetrical chest wall rise Resp clear to auscultation bilaterally Resp Narrative: She has very poor air entry. No wheezing and no crackles. She is not tachypneic at rest. Effort and Inspection: able to speak in complete sentences Cardio regular rate, regular rhythm, no rub and no gallops Cardio Narrative: The PMI is displaced inferior and medial......consistent with hyperinflation of the lungs. She has a systolic MM at the second RICS and the apex. GI normal to inspection, nondistended, normoactive bowel sounds, soft to palpation and non-tender GI Narrative: No guarding with palpation. She has diffuse abdominal bruits. Back/Spine Back/Spine Narrative: No pain with palpation over the cervical, thoracic and lumbar vertebrae. Extremity no pedal edema Extremity Narrative: Popliteal and dorsalis pedis pulses are +2 bilaterally. Skin no wounds and no jaundice Skin Narrative: No rashes General Skin Exam: no breakdown Neuro CN's II-XII intact bilaterally, moves all extremities and no focal motor deficits Neuro Narrative: poor short term memory. Psych denies hallucinations, denies homicidal ideation and denies suicidal ideation Psych Narrative: anxious Appearance: grossly normal Attitude: engaged, No withdrawn, No guarded, No agitated and No aggressive Activity / Motor Behavior: appropriate eye contact Speech: normal speech Mood & Affect: Negative for irritable, sad or tearful Thought Process: normal thought process Attention / Concentration: attention grossly intact Memory / Cognition: other Short-term memory is impaired Insight: fair Judgement: fair Results Lab / Micro Data 01/08/24 05:00 01/08/24 05:00 Assessment & Plan Assessment/Plan (1) Physical debility: (2) Subarachnoid hemorrhage: (3) Subdural hematoma: (4) Hyponatremia: (5) Metabolic alkalosis: (6) Normochromic normocytic anemia: (7) Chronic respiratory failure with hypoxia and hypercapnia: (8) Vitamin D deficiency: (9) Tobacco dependence due to cigarettes: PLAN: In remission for the past year. (10) Thyroid nodule: PLAN: Has never been worked up. Will defer to her PCP. (11) Anxiety and depression: (12) Polypharmacy: PLAN: Avoid any medications that cause sedation, confusion and respiratory depression. PLAN: Plan PLAN PT for gait stability OT for ADL's ST for evaluation Analgesics as needed Bowel protocol Fall precautions Assess for Anxiety/Depression GI prophylaxis-not necessary at the present time. She has no history of nausea/vomiting or epigastric pain and denies heartburn. DVT prophylaxis with Lovenox 40 mg subcu daily Follow up with PCP, pulmonary medicine following DC from [facility] Rehab AM lab including CMP, CBC, Mag and Phos Avoid polypharmacy and especially avoid drugs causing sedation, confusion and respiratory suppression. VBG in October showed mixed respiratory acidosis and metabolic alkalosis but, the alkalosis exceeded what would be expected for compensation for respiratory acidosis due to COPD. Check a TSH, urine sodium and creatinine, urine and serum osmolality. Does she have SIADH or TYPING CHECKER? DC the fluid restriction for now but, continue to monitor I&O's. Check a pulse ox on 2 LPM and then check a pulse ox with ambulation on 2 LPM. I had a discussion with the patient about the rules for rehab and explained that in order to remain on rehab she must do 3 hours of therapy daily. She seems motivated to stay on rehab and get better in hopes that she can go home post rehab rather than assisted living. Continue Melatonin at HS for sleep. 75 Minutes spent reviewing past diagnostic tests, lab results, vital sign trends, medical history, medications, all additional paperwork sent by the previous hospital, and ordering medications, examining the the patient and completing documentation. Charges/Coding Visit Charges Inpatient E&M: 41122 Init Hosp L3
[2024-01-09] MEDS: Sertraline 50 MG Tablet 25 MG PO (12:29)
[2024-01-09] MEDS: Sertraline 100 MG Tablet PO (12:29)
--- NOTE | 2024-01-09 15:43 | PCM.RU.PYE ---
Admission Information Primary Diagnosis:: Debility secondary to subdural hematoma/subarachnoid hemorrhage Status Changes from Prescreening?: No changes Identified Actual Problem List:: Falls (Suspected etiology of SAH/SDH), Cognitve Impr/Memory Loss, Depression, Alteration in Sleep, Mobility Impaired, Self Care Deficit, Know.Dfct of Medicaitons, Alteration/ Air Exchange and Alteration-Leisure Activ. Potential Problem List:: DVT, Bleeding, Infection, UTI, Aspiration, Falls, Skin Integrity and Depression Risk of Complications DVT: LMWH and BARB Hose Bleeding: Monitor Lab Values, Nursing to Teach Precautions for anti-coagulation therapy., Wound, if applicable, to be assessed every shift. and Stroke patients assessed for lethargy or change in status. Infection: Clinical Staff to Monitor for S/S of infection: and S/S of infection include fever, redness, warmth, etc. Urinary Tract Infection: Monitor for frequency, burning, discomfort, or incontinence. and Nursing will obtain urine sample for urinalysis and C&S when ordered. Aspiration: Clinical staff will monitor for coughing, drooling, congestion., Speech will evaluate swallowing and dsyphasia. and Nursing will monitor patient swallowing during meals. Falls: Patient will be evaluated for Fall Precautions and Patient will be placed on Fall Precautions as indicated per protocol. Skin Breakdown: Nursing will assess skin daily using assessment tool. and Nursing will place on Skin Breakdown Precautions as indicated. Pain: Clinical staff will assess patient's pain level per protocol., Medications will be given, if needed, and the pain level reassessed. and Other methods: Massage, distraction, decrease stimulus, etc. used PRN. Plan of Care Patient requires physician specializing in physical medicine and rehab oversight to provide close medical supervision of rehab issues including: Pain Management, Sleep Problems, Bowel and Bladder, Medical and co-morbidity Management, DVT prophylaxis, Rehabilitation Leadership and Coordination of treatment team Patient needs Physical Therapy: For a minimum of 1 hour and At least 5 out of 7 days Patient needs Physical Therapy to improve:: Mobility, Strengthening, Transfers, Stretching, ROM, Endurance, Stairs, Gait and Balance Patient needs Occupational Therapy: For a minimum of 1 hour and At least 5 out of 7 days Patient needs Occupational Therapy to improve ADL's incl.: Eating, Grooming, Bathing, Dressing, Toileting, Toilet transfers, Community Reintegration, Higher functioning activities, Household tasks, Adaptive Equipment, Splinting and Other activities as determined Patient requires speech therapy for: Swallowing, Cognition, Language Skills and Compensatory Strategies Patient requires 24/7 Rehabilitation Nursing for: Pain Issues, Identifying and preventing risk factors, Monitoring and reporting current medical conditions, Assisting with ambulation, transfer, and all ADL's, Teaching patients about disease process and medications, Family teaching, Providing safe environment, Bowel and Bladder Issues, Skin integrity and Medication Management Patient needs Surgical Instruments Inspector/ Case Management for: Discharge Planning, Arranging Home Equipment or Services and Family Interventions Patient needs Dietary and Nutrition Services for: Adequate Nutrition, Nutritional Supplements and Nutritional Education Goals Goals Patient will remain: free from falls Patient will perform eating at: MOD I level of assist. Patient will perform bed mobility at: MOD I level of assist. Patient will complete transfers from bed to chair at: MOD I level of assist. Patient will ambulate: - (150 feet with a rollator at mod I) Patient will complete upper body dressing at: MOD I level of assist. Patient will complete lower body dressing at: MOD I level of assist. Patient will complete toilet transfer at: MOD I level of assist. Patient will complete toileting at: MOD I level of assist. Patient will perform bathing at: MOD I level of assist. Patient will perform Tub/Shower transfer at: - (Supervision for the first 2 weeks) Patient will complete grooming at: MOD I level of assist. Patient will complete home management skills at: MOD I level of assist. (Utilizing the least restrictive device) Patient will achieve: - (1 curb step) Patient will have pain level of: of 3 or less Patient's skin will: remain intact Patient will receive: adequate nutrition. Discharge Planning Pt Prognosis for Sig. Practical Improv. w/in Reasonable Time: Fair Estimated Length of stay (days): 21 Anticipated D/C Destination: Assisted Living Facility Was Preadmission Assessment Accurate?: Yes
[2024-01-09] MEDS: 0.9% Saline Lock 10 ML Syringe IV ×2 (16:19→23:48)
[2024-01-09 16:22] LABS: Allen Test Positive; Base Excess 17 mmol/L (-2 to +2); Bicarbonate 41.8 mmol/L (22-26); Blood Gas Specimen Type ART; Mode Not entered; O2 Delivery Device Cannula; PO2 94 mmHG (75-100); SITE R Radial; SO2 97 % (95-99); Time Given 16:20:25; Total Carbon Dioxide 44 mmol/L; pCO2 68.5 mmHg (35-45); pH 7.39 (7.35-7.45)
[2024-01-09 17:10] LABS: Osmolality, Serum 281 mOsm/KG (280-301)
[2024-01-09 17:24] LABS: Thyroid Stim Hormone (TSH) 0.66 uIU/mL (0.358-3.74)
[2024-01-09 17:59] LABS: Osmolality, Urine 450 mOsm/KG
[2024-01-09 18:10] LABS: Urine Sodium 28 mmol/L (Not Establ.)
[2024-01-09 19:25] VITALS: PULSE 89; RESP 24
[2024-01-09] MEDS: Atorvastatin Calcium 10 MG Tablet PO (21:27)
[2024-01-09] MEDS: MELATONIN 3 MG TABLET PO (21:27)
[2024-01-09] MEDS: NYSTATIN 500,000 UNIT/5 ML UDC 500000 UNIT PO (21:29)
[2024-01-09] MEDS: Sodium Chloride 0.65% 1 SPRAY SPRAY.BTL 2 SPRAY NASAL (21:32)
[2024-01-09 22:00] VITALS: BP 134/74; PULSE 85; RESP 18; RESP 20; TEMP 37.1; O2SAT 98; O2SAT 99
[2024-01-09 22:02] VITALS: PULSE 79; O2SAT 98
[2024-01-10] VITALS (8 sets, daily range): BP systolic 122–132; BP diastolic 64–70; PULSE 71–87; RESP 16–20; TEMP 36.6–37.1; O2SAT 94–99
--- NOTE | 2024-01-10 02:13 | CPS ---
[0208] Pt. tugging on her pulse oximeter sensor while running an overnight trend. RN called and notified me. I replaced her broken pulse oximeter sensor with a new one.
--- NOTE | 2024-01-10 02:28 | NURSING ---
Pt called staff for help. Staff responded and found pt fidgeting in bed. Pt had removed finger probe for trending pulse ox. Probe was damaged, RT called, and RT came to floor to replace probe. Pt has TV on and staff encouraged pt to try to go back to sleep. Pt had also removed dentures, complaining that dentures were missing. Dentures found under rt hip.
[2024-01-10] MEDS: Enoxaparin 40 MG/0.4 ML Syringe SC (05:52)
[2024-01-10] MEDS: Acetaminophen 325 MG Tablet 650 MG PO ×4 (06:43→21:31)
[2024-01-10] MEDS: Albuterol 2.5 MG/3 ML VIAL.NEB. INHALATION ×3 (06:47→18:55)
[2024-01-10] MEDS: NYSTATIN 500,000 UNIT/5 ML UDC 500000 UNIT PO ×4 (08:16→21:28)
[2024-01-10] MEDS: Senna/Docusate Sodium 1 Tablet 2 TABLET PO ×2 (08:16→21:28)
[2024-01-10] MEDS: Lidocaine 5% Patch 1 PATCH TOPICAL (08:16)
[2024-01-10] MEDS: Cholecalciferol (VIT D3) 25 MCG TABLET (1,000 UNITS) PO (08:16)
[2024-01-10] MEDS: Multivitamins,Therapeutic Tablet 1 TABLET PO (08:16)
[2024-01-10] MEDS: Menthol/Lanolin/Calamine/Znox 113 GM Tube 1 APPLIC TOPICAL ×2 (08:17→21:30)
[2024-01-10] MEDS: Sodium Chloride 1 GM Tablet PO ×3 (08:17→17:18)
--- NOTE | 2024-01-10 08:37 | EX.PCM.CONCC ---
Assessment & Plan Assessment/Plan (1) Chronic respiratory failure with hypoxia and hypercapnia: PLAN: Plan RECOMMENDATIONS: 1. Continue bronchodilators 2. No systemic steroids indicated 3. Walking oximetry prior to discharge 4. Outpatient complete PFT and echocardiogram 5. Supplemental oxygen to maintain saturations between 90 and 94% 6. Follow-up with nurse practitioner 2 weeks after discharge. Will sign off. IMPRESSIONS: 1. Chronic hypercarbic respiratory failure secondary to probable COPD Patient does have significant hyperinflation on chest x-ray. Long smoking history and elevation of CO2 is suggestive of COPD. Patient should have PFTs and echocardiogram as an outpatient. Clinical suspicion is patient has poor insight into her overall condition. Patient has a relative anemia, which will exacerbate underlying pulmonary symptomatology. Patient will need a walking oximetry prior to discharge. Patient would likely benefit from an echocardiogram for evaluation of pulmonary hypertension. Unclear asthmatic component, so likely not necessary to have an inhaled or systemic corticosteroids. Ideally, patient would be placed on BiPAP, but has not tolerated that to this point. No workup outside of a walking oximetry prior to discharge would be indicated. Will sign off and follow as an outpatient. 2. Recent subarachnoid hemorrhage/subdural hematoma/vitamin D deficiency/thyroid nodule/anxiety/depression/advanced age/debility Complicates care, management, recovery and prognosis. I agree with the current medications. Patient likely would benefit from dietary recommendations. Clinical suspicion is patient has an element of pulmonary cachexia, but this would have to be readdressed after pulmonary function tests are available for review to confirm suspicion of significant decline in lung function. Patient is no longer smoking. Anxiety will exacerbate underlying pulmonary pathology. HPI Consult Data Date of Consult: 01/10/24 HPI Narrative Reason for Consultation: CO2 retention HPI Narrative: LYDIA RANDOLPH is a 78 F, with past medical history listed below, who presents to [facility] rehab on 01/07/2024 secondary to confusion and shortness of breath. Patient had an intracranial hemorrhage with associated subarachnoid hemorrhage along with acute on chronic thoracic fractures with waxing and waning mentation. Patient reportedly was seen at [facility] for this and then transferred to acute rehab on 01/07/2024. Patient was having difficulty with therapy, so an ABG was obtained showing significant CO2 retention. Patient was attempted on BiPAP, but was unable to tolerate this. Pulmonary consult was obtained for recommendations. Patient states she has been seen at [facility] secondary to COPD. Patient states she saw a customer care team coach once and did not have a PFT. Patient stated they could not get along. Patient does report a long history of smoking of over 40+ pack years. Patient quit approximately 1 year ago. Patient is unclear if she has ever had a PFT, but has been told that she has COPD. Patient has been admitted previously for COPD exacerbations. Patient has tried BiPAP in the past, but was unable to tolerate secondary claustrophobia. Patient is unaware of any previous echocardiogram results. Patient does use Breztri as needed as an outpatient. Review of systems otherwise negative from a constitutional, HEENT, respiratory, cardiovascular, GI, genitourinary, musculoskeletal, skin, neurologic, psychiatric and hematologic system unless stated above. FOR[facility]LY [facility] Medical History Anxiety and depression Arterial stenosis Carotid artery stenosis Chronic back pain Chronic hyponatremia Chronic respiratory failure with hypoxia and hypercapnia Colon, diverticulosis Coronary artery disease HTN (hypertension) Mixed hyperlipidemia Normochromic normocytic anemia Peripheral arterial disease Restless leg syndrome Thoracic compression fracture Tobacco dependence due to cigarettes Vitamin D deficiency Home Medications acetaminophen 325 mg tablet 650 mg PO Q6H PRN pain 01/07/24 [History Last Taken Unknown] albuterol sulfate 2.5 mg/3 mL (0.083 %) solution for nebulization 2.5 mg inhalation 4X/DAY wheezing 01/07/24 [History Last Taken Unknown] atorvastatin 10 mg tablet 10 mg PO QHS cholesterol 01/07/24 [History Last Taken Unknown] ivnvcrause-dhfiwsg-lmxonwgocwuqi 10 mg-2.5 mg lozenges 1 hector mucous membrane 4X/DAY PRN sore throat 01/07/24 [History Last Taken Unknown] budesonide 160 mcg-glycopyr 9 mcg-formot 4.8 mcg/actuation HFA inhaler (Breztri Aerosphere) 1 inh inhalation DAILY PRN shortness of breath 01/07/24 [History Last Taken Unknown] cholecalciferol (vitamin D3) 10 mcg (400 unit) capsule 800 unit PO DAILY vitamin 01/07/24 [History Last Taken Unknown] lidocaine 4 % topical patch 1 patch topical DAILY back pain 01/07/24 [History Last Taken Unknown] melatonin 3 mg tablet 3 mg PO QHS sleep 01/07/24 [History Last Taken Unknown] multivitamin (Daily Multi-Vitamin tablet) 1 tab PO DAILY vitamin 01/07/24 [History Last Taken Unknown] sertraline 100 mg tablet 100 mg PO DAILY mood 01/07/24 [History Last Taken Unknown] sertraline 25 mg tablet 25 mg PO DAILY mood 01/07/24 [History Last Taken Unknown] sodium chloride 1,000 mg soluble tablet 1,000 mg PO BID vitamin 01/07/24 [History Last Taken Unknown] Allergy/AdvReac Type Severity Reaction Status Date / Time iron [From Venofer] Allergy Intermediate NEEDS Verified 10/29/23 14:25 FOLLOW-UP varenicline [From Chantix] Allergy Intermediate NEEDS Verified 10/29/23 14:25 FOLLOW-UP Family History Mother Diabetes Hypertension Cancer Father Alzheimers disease Gout Family History unable to obtain Surgical History History of appendectomy History of carotid endarterectomy History of cataract extraction History of laminectomy History of tonsillectomy History of tubal ligation Surgical History unable to obtain Social History housing: assisted living facility number of children: 2 Smoking Status: Former smoker how long ago did patient quit smokin year ago alcohol intake: never substance use type: does not use Physical Exam Const alert and oriented x3 Constitutional Narrative: Appears older than stated age General Appearance: well kempt and anxious HEENT normocephalic and hearing grossly normal bilaterally Eyes PERRL, EOMs intact bilaterally, conjunctivae normal and no scleral icterus Neck supple Chest Chest Narrative: Increased AP diameter Resp clear to auscultation bilaterally Effort and Inspection: able to speak in complete sentences Auscultation: diminished lung sounds; Negative for rales, rhonchi or wheezes Cardio regular rate, regular rhythm, S1 normal heart sound, S2 normal heart sound, no murmurs, no rub and no gallops GI normal to inspection, nondistended, normoactive bowel sounds, soft to palpation and non-tender Extremity no pedal edema General Extremity: clubbing Skin no wounds and no jaundice General Skin Exam: no breakdown Neuro CN's II-XII intact bilaterally, moves all extremities and no focal motor deficits Medical Records Data Attestation: I reviewed the patient's medical records Medical records narrative: No echocardiogram or PFTs available for review. Patient did have a chest x-ray completed on October 29, 2023 showing significant hyperinflation with prominent pulmonary vasculature. Lab / Micro Data Attestation: I reviewed the patient's lab results. Lab results narrative: Patient has had an elevated bicarbonate dating back to June 2023 01/08/24 05:00 01/08/24 05:00 Labs: Laboratory Results - last 24 hr 01/09/24 16:13: Serum Osmolality 281, TSH 0.66 01/09/24 17:30: Urine Osmolality 450, Ur Random Sodium 28, Urine Creatinine 71.80 ABG Data ABG results: ABG 01/09/24 16:18 Specimen Type ART Sample Site R Radial pH 7.39 Bicarbonate Actual 41.8 H Total CO2 44 Base Excess 17 H O2 Saturation 97 O2 % 3.0 ABG pCO2 68.5 H* ABG pO2 94 Jason Test Positive O2 Delivery Device Cannula Vent Mode Not entered Crit Call To/Read Back Yes Blood Gas Notified Whom jeannette garvin Blood Gas Notified Time 16:20:25 Attestation: I personally reviewed and interpreted this ABG as follows: (Compensated chronic respiratory acidosis with increased AA gradient) Imaging Chest x-ray reviewed and described above. Charges/Coding Visit Charges Inpatient E&M: 07009 Init Hosp L2
--- NOTE | 2024-01-10 08:46 | CASEMGMT ---
Social Work Met with patient to completed admission assessment. Introduced self and role. Patient expressed she has been feeling very depressed and anxious everyday since started dealing with her health issues. She denied any suicidal thoughts. Patient stated she was living independently last year but then started having medical issues and has been in/out of hospital. Has been at different nursing homes and has been in an assisted living since October. She would love to return back to to independent living but doesn't know if that is going to be possible. She stated her son is very supportive and has been helping her deal with her medical issues. Pt is receiving antidepressant. She stated she hasn't utilized counseling and is not intersted in this. SW will continue to follow for DC planning. Yadira DOUGLASSW
--- NOTE | 2024-01-10 09:06 | CASEMGMT ---
Social Work This worker telephoned patient's son to discuss Team Meeting and discharge plans. Son stated if he does not have to work, he will plan to be at the meeting. Son stated he has been in contact with [facility] and they are planning for patient to return to assisted living. Son stated he does not feel patient can return home directly from the . GILLIAN Taylor
--- NOTE | 2024-01-10 10:26 | PN_ITS ---
Subjective Subjective Afebrile VSS Maintaining appropriate oxygen saturation on RA Oral intake - FOOD fair FLUIDS [] postvoid residual x 1 is 35 cc. Discussed with nursing - night nursing state pt awake off and on last night. Has been incontinent of urine at times. Reviewed the THERAPY notes Medication list reviewed. TSH is normal. Serum osmolality is normal at 281 and the urine osmolality was 450. Urine sodium was 28 and the urine creatinine was 71.84 fractional excretion of sodium of 0.1%. Serum osmo is normal and the urine osmo is less than maximally dilute. The urine sodium is not low. Most likely etiology is S IADH or [employer]. TSH is normal. The overnight trending pulse ox done on 1-/2 L of nasal O2 shows that 99.68% of the time she was monitored she is 90 to 100% saturated. She had 1 desaturation event where she was 79% for 6 minutes and [address] Gasca's consult. Will schedule an appt for her to be seen in the Pulmonary office within 2 weeks post DC from rehab. she is perseverating on BM's and is always asking for stool softeners despite the fact that she has been having regular/loose BM's. Short term memory is poor. She had a score of 35/50 on the BCAT today. She has decreased attention and is distracted easily by both internal/external stimuli. She is frequently drowsy. Denies CP, cough, SOB at rest, N/V/abd pain. She did 2.5 minutes on the Nu- step today and then she said she had to have a BM. She was on 4 LPM while on the nu-step and the pulse ox was 98%. Goal is to have her walk or do the Nu-step for 6 minutes and check oximetry for oxygen requirement with exertion prior to DC. Objective Data Objective Data Vital Signs: Vital Signs Temp Pulse Resp BP Pulse Ox O2 Del Method O2 Flow Rate 97.9 F 85 16 132/64 H 98 Nasal Cannula 1.5 01/10/24 09:04 01/10/24 09:04 01/10/24 09:04 01/10/24 09:04 01/10/24 09:48 01/10/24 09:48 01/10/24 09:48 FiO2 26 01/09/24 22:02 Oxygen Flow Rate (L/min) 1.5 Oxygen Delivery Method Nasal Cannula Weight: 94 lb 5 oz Body Mass Index (BMI) 19.0 Intake & Output: Intake and Output for Last 24 Hours 01/08/24 01/09/24 01/10/24 23:59 23:59 23:59 Intake Total 1080 / 1080 450 / 450 120 / 120 Output Total 1450 / 1600 1450 / 1450 350 / 350 Balance -370 / -520 -1000 / -1000 -230 / -230 Lab / Micro Data 01/08/24 05:00 01/08/24 05:00 Labs: Laboratory Results - last 24 hr 01/09/24 16:13: Serum Osmolality 281, TSH 0.66 01/09/24 17:30: Urine Osmolality 450, Ur Random Sodium 28, Urine Creatinine 71.80 ABG Data ABG results: ABG 01/09/24 16:18 Specimen Type ART Sample Site R Radial pH 7.39 Bicarbonate Actual 41.8 H Total CO2 44 Base Excess 17 H O2 Saturation 97 O2 % 3.0 ABG pCO2 68.5 H* ABG pO2 94 Jason Test Positive O2 Delivery Device Cannula Vent Mode Not entered Crit Call To/Read Back Yes Blood Gas Notified Whom jeannette garvin Blood Gas Notified Time 16:20:25 Physical Exam Const Constitutional Narrative: Poor short term memory and I have to keep repeating things to her. She can not even remember that she has had a BM in the morning. Does not appear anxious or depressed. Orientation / Consciousness: confused HEENT Mouth: dry mucous membranes Resp normal respiratory effort and clear to auscultation bilaterally Effort and Inspection: Negative for tachypneic Auscultation: diminished lung sounds Cardio regular rate, regular rhythm and no gallops GI normal to inspection, nondistended, normoactive bowel sounds, soft to palpation and non-tender Extremity no calf tenderness General Extremity: Negative for edema Skin General Skin Exam: dry skin Rashes: no rashes Assessment & Plan Assessment/Plan (1) Physical debility: (2) Subarachnoid hemorrhage: PLAN: Even though she denies falling I suspect she fell and hit her head.......I have no other reason why she would have a SAH and SDH. She is confused at times and often drowsy.....poor short term memory. (3) Subdural hematoma: (4) Hyponatremia: (5) Metabolic alkalosis: (6) Normochromic normocytic anemia: (7) Chronic respiratory failure with hypoxia and hypercapnia: (8) Vitamin D deficiency: (9) Thyroid nodule: (10) Anxiety and depression: (11) Polypharmacy: PLAN: Plan 1. Continue therapy 2. low sodium may be due to cerebral salt wasting or to SIADH. Could also be related to Sertraline but, sodiums had been normal in October of 2023 prior to the recent SAH/SDH. Will continue with salt tabs and some fluid restriction. 3. Pt has not seen a lens silverer in at least 4 years. No PFT's to review.... she can not recall the name of the lens silverer she saw. Low O2 and hypercarbia are reflective of probable severe COPD. Will schedule a follow up in the pulmonary office post DC to arrange PFT's and ECHO. No steroids indicated at this time........no wheezing. Will continue the Albuterol aerosols. Maintain pulse ox between 90-94%. Today she is 98% on 1.5 liters.......will decrease to 1 LPM at rest. Do a walking pulse ox today. 4. Doubt she is going to be able to do 3 hours of therapy a day. Will continue to monitor for the next couple days and if she is not doing 3 hours of therapy will need down graded. 5. Increase the salt tabs to 1 GM TID. 6. Accurate I&O 7. why is she anemia? TSH is normal. She is N/N with no hx of recent acute blood loss. RDW is normal. Will check a SPE in the AM. aAso check a cortisol and ACTH in the AM. 8. BMP in the AM. Charges/Coding Visit Charges Inpatient E&M: 95748 Subs Hosp L1
[2024-01-10] MEDS: Sertraline 100 MG Tablet PO (11:59)
[2024-01-10] MEDS: Sodium Chloride 0.65% 1 SPRAY SPRAY.BTL 2 SPRAY NASAL (21:14)
[2024-01-10] MEDS: Atorvastatin Calcium 10 MG Tablet PO (21:16)
[2024-01-11] VITALS (7 sets, daily range): BP systolic 117–119; BP diastolic 61–77; PULSE 84–90; RESP 16–24; TEMP 36.3–36.8; O2SAT 93–99; BMI 19.3
[2024-01-11] MEDS: Acetaminophen 325 MG Tablet 650 MG PO ×3 (03:43→21:05)
--- NOTE | 2024-01-11 04:20 | NURSING ---
Pt has been awake from 3:25 to present (04:30) calling staff claiming that she is afraid. Pt has called staff repeatedly in this time frame for numerous needs i.e., pillow, coffee, toileting, Tylenol, reassurance, to no avail. Within minutes of staff leaving room, pt puts transplant nurse practitioner light. When staff answers call light, pt claims she needs Help!
[2024-01-11] MEDS: Enoxaparin 40 MG/0.4 ML Syringe SC (05:01)
[2024-01-11] MEDS: Albuterol 2.5 MG/3 ML VIAL.NEB. INHALATION ×3 (07:11→20:04)
--- NOTE | 2024-01-11 07:14 | CPS ---
Per the note on the back of the pt bed, this RT increased pt to the 1.5L it states she should be at, when pt is at rest
[2024-01-11] MEDS: NYSTATIN 500,000 UNIT/5 ML UDC 500000 UNIT PO ×3 (08:09→21:05)
[2024-01-11] MEDS: Menthol/Lanolin/Calamine/Znox 113 GM Tube 1 APPLIC TOPICAL ×2 (08:09→21:09)
[2024-01-11] MEDS: Lidocaine 5% Patch 1 PATCH TOPICAL (08:10)
[2024-01-11] MEDS: Multivitamins,Therapeutic Tablet 1 TABLET PO (10:04)
[2024-01-11] MEDS: Senna/Docusate Sodium 1 Tablet 2 TABLET PO (10:04)
[2024-01-11] MEDS: Sodium Chloride 1 GM Tablet PO ×3 (10:04→16:10)
[2024-01-11] MEDS: Cholecalciferol (VIT D3) 25 MCG TABLET (1,000 UNITS) PO (10:04)
[2024-01-11] MEDS: Sertraline 100 MG Tablet PO (12:12)
[2024-01-11] MEDS: busPIRone 5 MG Tablet 2.5 MG PO (16:09)
[2024-01-11] MEDS: MELATONIN 3 MG TABLET 1.5 MG PO (21:05)
[2024-01-11] MEDS: Atorvastatin Calcium 10 MG Tablet PO (21:05)
[2024-01-12] MEDS: Acetaminophen 325 MG Tablet 650 MG PO ×2 (03:58→18:12)
[2024-01-12] MEDS: Enoxaparin 40 MG/0.4 ML Syringe SC (05:13)
[2024-01-12 06:49] VITALS: PULSE 89; RESP 16; O2SAT 99
[2024-01-12] MEDS: Albuterol 2.5 MG/3 ML VIAL.NEB. INHALATION ×3 (06:49→20:25)
[2024-01-12] MEDS: Sodium Chloride 1 GM Tablet PO ×3 (08:06→17:16)
[2024-01-12] MEDS: NYSTATIN 500,000 UNIT/5 ML UDC 500000 UNIT PO ×4 (08:06→22:15)
[2024-01-12] MEDS: Menthol/Lanolin/Calamine/Znox 113 GM Tube 1 APPLIC TOPICAL ×2 (08:06→22:30)
[2024-01-12] MEDS: Cholecalciferol (VIT D3) 25 MCG TABLET (1,000 UNITS) PO (08:06)
[2024-01-12] MEDS: Multivitamins,Therapeutic Tablet 1 TABLET PO (08:06)
[2024-01-12] MEDS: busPIRone 5 MG Tablet 2.5 MG PO ×2 (08:07→15:58)
--- NOTE | 2024-01-12 09:01 | PCM.PROGNOTE ---
Subjective Subjective Staci was seen on TEAM rounds today. Her son was present in the room for rounds. Afebrile VSS Maintaining appropriate oxygen saturation on RA - she is 95-99 on 1.5 LPM at rest. she requires 3 LPM with exertion. She has done 6 minutes on the Nu Step and O2 sat ranged from 89-94% on 3 LPM. Oral intake - FOOD poor - had been doing better. I do not know that it is necessarily her appetite that is poor - she is picky and does not like the food. she has actually gained about 1/2 a lb since mid October. FLUIDS poor Discussed with nursing - no problems that need addressed. Slept well last night per nursing. got up once at 4 AM and was given Tylenol and she went back to sleep shortly after the Tylenol. Reviewed the THERAPY notes Medication list reviewed. She was started on Buspar 2.5 mg BID yesterday and we restarted Melatonin at Hs but, at 1.5 mg not 3 mg. ACTH is still pending but, cortisol was normal. SPE is also pending. Wants someone in her room with her at all times. She rings her call light very often for small things just to have someone in her room. Tells me that she is afraid to be alone. Objective Data Objective Data Vital Signs: Vital Signs Temp Pulse Resp BP Pulse Ox O2 Del Method O2 Flow Rate 98.3 F 89 16 119/61 99 Nasal Cannula 1.5 01/11/24 22:00 01/12/24 06:49 01/12/24 06:49 01/11/24 22:00 01/12/24 06:49 01/12/24 06:49 01/12/24 06:49 FiO2 26 01/09/24 22:02 Oxygen Flow Rate (L/min) 1.5 Oxygen Delivery Method Nasal Cannula Weight: 95 lb 14.417 oz Body Mass Index (BMI) 19.3 Intake & Output: Intake and Output for Last 24 Hours 01/10/24 01/11/24 01/12/24 23:59 23:59 23:59 Intake Total 360 / 360 1110 / 1410 300 / 300 Output Total 600 / 600 750 / 950 400 / 400 Balance -240 / -240 360 / 460 -100 / -100 Lab / Micro Data 01/08/24 05:00 01/08/24 05:00 Labs: Laboratory Results - last 24 hr 01/11/24 05:42: Cortisol 24.10 H Micro: Microbiology 01/11/24 14:20 Stool Stool Occult Blood (ROSY) - Final Physical Exam Const alert HEENT head/scalp atraumatic Mouth: dry mucous membranes Resp Resp Narrative: No crackles or wheezes but, air exchange is poor and she has very diminished BS's throughout. Not tachypneic at rest. Cardio regular rate, regular rhythm and no gallops GI normal to inspection, nondistended, normoactive bowel sounds, soft to palpation and non-tender Extremity no calf tenderness General Extremity: Negative for edema Skin General Skin Exam: no breakdown Rashes: no rashes Wounds: Negative for wounds noted Psych Psych Narrative: She is reluctant to do anything for herself if she can find someone else to do it for her. Staff is aware of this and encourages her to do as much for herself as she can. Tries to manipulate staff and family into doing things for her that she is able to do herself. Her son is aware of this and it is not new for her. Assessment & Plan Assessment/Plan (1) Physical debility: (2) Subarachnoid hemorrhage: (3) Subdural hematoma: (4) Hyponatremia: (5) Metabolic alkalosis: (6) Normochromic normocytic anemia: (7) Chronic respiratory failure with hypoxia and hypercapnia: (8) Vitamin D deficiency: (9) Thyroid nodule: (10) Anxiety and depression: (11) Polypharmacy: PLAN: Plan 1. Continue therapy 2. Not appropriate for acute rehab. Not able or willing to try to do 3 hours of therapy daily. Has not improved with a couple stays in SNF for the past few months. She has severe chronic lung disease with hypoxia and CO2 retention. She is deconditioned and finds ways to get out of doing therapy.......frequently interrupts therapy to have a BM and then does not go and refuses to go back to therapy. In my opinion she is at the end of her life and is most appropriate for an ECF at this time. I explained this to her son. We discussed a palliative care referral and she is on board with this. SW will arrange. 3. Pt and family were given options for facilities to DC to. Plan on DC Tuesday. 4. Continue Buspar and Melatonin at 1.5 mg at night. Charges/Coding Visit Charges Inpatient E&M: 13438 Subs Hosp L2
[2024-01-12 10:00] VITALS: BP 102/54; PULSE 92; RESP 17; TEMP 36.7; O2SAT 94; O2SAT 96
[2024-01-12] MEDS: Sodium Chloride 0.65% 1 SPRAY SPRAY.BTL 2 SPRAY NASAL ×2 (10:02→21:03)
--- NOTE | 2024-01-12 12:52 | CASEMGMT ---
Social Work IDT met with patient and son for Team meeting. Discussed patient's progress in PT/OT/ST/SN. Educated to [facility] insurance with NRD 01/12 and continued stay is not guaranteed with each review. However, [facility] has noted IDT to set DC date. IDT discussed LOC needs and recommending pt transfer to a SNF for additional assistance that cannot be provided at [facility]. IDT set DC date for 01/16. SW offered printed SNF list in preferred area with quality and resource data via [employer] Guide. Pt/son to provide choices. SW educated to precert process. Dr also discussed palliative care for pt and pt agreed to referral. Pt/son requested referrals to [facility], [facility] and [facility]. SW placed referrals to SNFs via [employer]. SW placed referral to [facility] via secure email. SW will continue to follow to finalize DC plans. Plan: DC 01/16, to SNF, skilled, pending precert FERNANDO HoyosW
[2024-01-12 13:08] LABS: Adrenocorticotropic Hormone 7.6 pg/mL (7.2-63.3); PROEL- A/G Ratio 1.5 (0.7-1.7); PROEL- Albumin 3.5 g/dL (2.9-4.4); PROEL- Alpha-1 Globulin 0.3 g/dL (0.0-0.4); PROEL- Alpha-2 Globulin 0.6 g/dL (0.4-1.0); PROEL- Beta Globulin 0.8 g/dL (0.7-1.3); PROEL- Gamma Globulin 0.5 g/dL (0.4-1.8); PROEL- Globulin, Total 2.3 g/dL (2.2-3.9); PROEL- TOTAL PROTEIN 5.8 g/dL (6.0-8.5); PROEL-M-Spike Not Observed g/dL (Not Observed)
[2024-01-12] MEDS: Sertraline 100 MG Tablet PO (13:27)
--- NOTE | 2024-01-12 15:25 | CASEMGMT ---
Social Work SW submitted referral via [facility] for SNF placement. SW submitted referral to [facility], [facility], and [facility] per patient/family choice. Patient referral for placement is pending. The patient has anticipated discharge to alf facility on 01/17/2024 pending acceptance at facility and insurance authorization approval. GERMAIN Crespo
[2024-01-12 16:37] VITALS: PULSE 84; RESP 16
[2024-01-12 20:25] VITALS: PULSE 88; RESP 18
[2024-01-12 22:00] VITALS: BP 120/54; PULSE 82; RESP 17; TEMP 36.4; O2SAT 97
[2024-01-12] MEDS: Senna/Docusate Sodium 1 Tablet 2 TABLET PO (22:16)
[2024-01-12] MEDS: MELATONIN 3 MG TABLET 1.5 MG PO (22:28)
[2024-01-12] MEDS: Atorvastatin Calcium 10 MG Tablet PO (22:28)
[2024-01-13] MEDS: Acetaminophen 325 MG Tablet 650 MG PO ×4 (00:29→22:33)
[2024-01-13] MEDS: Sodium Chloride 0.65% 1 SPRAY SPRAY.BTL 2 SPRAY NASAL ×2 (01:45→20:28)
[2024-01-13] MEDS: Enoxaparin 40 MG/0.4 ML Syringe SC (05:54)
[2024-01-13 07:34] VITALS: PULSE 96; RESP 18; O2SAT 94
[2024-01-13] MEDS: Albuterol 2.5 MG/3 ML VIAL.NEB. INHALATION ×3 (07:34→15:19)
[2024-01-13] MEDS: Menthol/Lanolin/Calamine/Znox 113 GM Tube 1 APPLIC TOPICAL ×2 (08:29→20:26)
[2024-01-13] MEDS: NYSTATIN 500,000 UNIT/5 ML UDC 500000 UNIT PO ×4 (08:30→20:26)
[2024-01-13] MEDS: Senna/Docusate Sodium 1 Tablet 2 TABLET PO (08:30)
[2024-01-13] MEDS: busPIRone 5 MG Tablet 2.5 MG PO ×2 (08:30→16:46)
[2024-01-13] MEDS: Sodium Chloride 1 GM Tablet PO ×3 (08:31→16:45)
[2024-01-13] MEDS: Multivitamins,Therapeutic Tablet 1 TABLET PO (08:31)
[2024-01-13] MEDS: Cholecalciferol (VIT D3) 25 MCG TABLET (1,000 UNITS) PO (08:31)
[2024-01-13 09:38] VITALS: BP 137/54; PULSE 76; RESP 16; TEMP 36.8; O2SAT 96
[2024-01-13 10:20] VITALS: PULSE 112; RESP 18; O2SAT 100
[2024-01-13] MEDS: Sertraline 100 MG Tablet PO (11:59)
[2024-01-13 15:19] VITALS: PULSE 80; RESP 18
[2024-01-13 20:15] VITALS: BP 134/59; PULSE 93; RESP 17; TEMP 36.7; O2SAT 3; O2SAT 98
[2024-01-13] MEDS: MELATONIN 3 MG TABLET 1.5 MG PO (20:25)
[2024-01-13] MEDS: Atorvastatin Calcium 10 MG Tablet PO (20:26)
[2024-01-14] MEDS: Acetaminophen 325 MG Tablet 650 MG PO ×4 (06:12→20:55)
[2024-01-14] MEDS: Enoxaparin 40 MG/0.4 ML Syringe SC (06:13)
[2024-01-14 06:50] VITALS: PULSE 79; RESP 17; O2SAT 96
[2024-01-14] MEDS: Albuterol 2.5 MG/3 ML VIAL.NEB. INHALATION ×4 (06:50→19:29)
[2024-01-14] MEDS: busPIRone 5 MG Tablet 2.5 MG PO ×2 (07:46→16:16)
[2024-01-14] MEDS: Sodium Chloride 1 GM Tablet PO ×3 (07:47→16:16)
[2024-01-14] MEDS: Multivitamins,Therapeutic Tablet 1 TABLET PO (07:47)
[2024-01-14] MEDS: Cholecalciferol (VIT D3) 25 MCG TABLET (1,000 UNITS) PO (07:48)
[2024-01-14] MEDS: NYSTATIN 500,000 UNIT/5 ML UDC 500000 UNIT PO ×4 (07:49→20:53)
[2024-01-14] MEDS: Menthol/Lanolin/Calamine/Znox 113 GM Tube 1 APPLIC TOPICAL (07:51)
[2024-01-14 10:00] VITALS: BP 148/77; PULSE 81; RESP 16; RESP 18; TEMP 36.5; O2SAT 94
[2024-01-14 11:40] VITALS: PULSE 87; RESP 17
[2024-01-14] MEDS: Sertraline 100 MG Tablet PO (11:53)
[2024-01-14 15:40] VITALS: PULSE 82; RESP 17
[2024-01-14 19:30] VITALS: PULSE 78; RESP 18; O2SAT 99
[2024-01-14 20:00] VITALS: BP 106/66; PULSE 83; RESP 17; TEMP 37.1; O2SAT 97
[2024-01-14] MEDS: Senna/Docusate Sodium 1 Tablet 2 TABLET PO (20:53)
[2024-01-14] MEDS: MELATONIN 3 MG TABLET 1.5 MG PO (20:54)
[2024-01-14] MEDS: Atorvastatin Calcium 10 MG Tablet PO (20:55)
[2024-01-15] VITALS (8 sets, daily range): BP systolic 99–136; BP diastolic 47–60; PULSE 69–80; RESP 16–18; TEMP 36.1–37.3; O2SAT 95–96
[2024-01-15] MEDS: Albuterol 2.5 MG/3 ML VIAL.NEB. INHALATION ×6 (01:00→23:44)
--- NOTE | 2024-01-15 03:57 | NURSING ---
Reviewed and agree with Ana Maria JULIO, documentation and assessment charting.
[2024-01-15] MEDS: Enoxaparin 40 MG/0.4 ML Syringe SC (06:21)
[2024-01-15] MEDS: busPIRone 5 MG Tablet 2.5 MG PO ×2 (07:39→15:51)
[2024-01-15] MEDS: Sodium Chloride 1 GM Tablet PO ×3 (07:40→17:44)
[2024-01-15] MEDS: Multivitamins,Therapeutic Tablet 1 TABLET PO (07:40)
[2024-01-15] MEDS: Cholecalciferol (VIT D3) 25 MCG TABLET (1,000 UNITS) PO (07:41)
[2024-01-15] MEDS: Acetaminophen 325 MG Tablet 650 MG PO ×3 (07:43→21:48)
--- NOTE | 2024-01-15 09:46 | PN_ITS ---
Subjective Subjective Afebrile VSS Maintaining appropriate oxygen saturation on RA-pulse ox on 1.5 L of oxygen at rest is 95 to 97% which is still too high. Oral intake - FOOD generally taking 50 to 74% of her meals. This has improved over the past 3 days. FLUIDS fair Discussed with nursing - C/O her legs and feet burning to nursing. Also complaining that the Tylenol is not helping her JJ. Reviewed the THERAPY notes Medication list reviewed. She is complaining of burning pain in her legs. She attributes this to doing physical therapy with leg weights recently. Generally when I see her now she is in bed with her legs up. She tells me she does get in the chair but her legs continue to hurt. She also complains of headache but, only when I specifically ask about JJ. She denies nausea/vomiting/abdominal pain/abdominal cramping/diarrhea. She does complain of feeling constipated. She had 3 bowel movements on 01/11/2024 and 2 bowel movements on 01/13/2024. Has been refusing stool softeners intermittently. She tells me she is sleeping better at night. She tells me she is short of breath with even minimal activity. She denies cough. She asked me again what palliative care is and has very poor short-term memory. Objective Data Objective Data Vital Signs: Vital Signs Temp Pulse Resp BP Pulse Ox O2 Del Method O2 Flow Rate 97.0 F L 69 17 136/60 H 95 Nasal Cannula 1.5 01/15/24 07:25 01/15/24 07:25 01/15/24 07:25 01/15/24 07:25 01/15/24 07:25 01/15/24 07:54 01/15/24 07:54 FiO2 26 01/09/24 22:02 Oxygen Flow Rate (L/min) 1.5 Oxygen Delivery Method Nasal Cannula Weight: 95 lb 14.417 oz Body Mass Index (BMI) 19.3 Intake & Output: Intake and Output for Last 24 Hours 01/13/24 01/14/24 01/15/24 23:59 23:59 23:59 Intake Total 1060 / 1060 1145 / 1145 240 / 240 Output Total 1600 / 1600 1000 / 1000 550 / 550 Balance -540 / -540 145 / 145 -310 / -310 Lab / Micro Data 01/15/24 10:00 01/15/24 10:00 Micro: Microbiology 01/11/24 14:20 Stool Stool Occult Blood (ROSY) - Final Physical Exam Const alert Constitutional Narrative: Very forgetful. HEENT HEENT Narrative: Mucous membranes are a little dry. Thrush has resolved. Resp Auscultation: diminished lung sounds diffuse (Marked decrease in breath sounds/air exchange in all lung gutierrez. No wheezes and no crackles.) Cardio regular rate, regular rhythm and no gallops GI normal to inspection, nondistended, normoactive bowel sounds, soft to palpation and non-tender Extremity no calf tenderness Extremity Narrative: Dorsalis pedis pulses are +2 bilaterally. General Extremity: Negative for edema Skin General Skin Exam: no breakdown Rashes: no rashes Psych Psych Narrative: Seems less anxious to me. Not on the call light as much. Spending a lot of time in bed. Tells me that she is afraid to be alone and she is afraid in ge neral. Can not tell me what she is afraid of though. When I asked her if she was afraid of she said yes. I think she would benefit from psychotherapy. Avoids looking at me when I ask a question she does not want to answer. Attitude: No agitated Activity / Motor Behavior: Negative for restless Assessment & Plan Assessment/Plan (1) Physical debility: (2) Subarachnoid hemorrhage: (3) Subdural hematoma: (4) Hyponatremia: (5) Metabolic alkalosis: (6) Normochromic normocytic anemia: (7) Chronic respiratory failure with hypoxia and hypercapnia: (8) Polypharmacy: PLAN: Plan 1. Plan discharge on Tuesday to an ECF 2. Check a CBC and BMP now 3. Place the bed in a vascular position when she is lying in bed. 4. Continue Tylenol for pain. 5. I suspect the JJ is due to Co2 retention and not due to SDH. If the serum bicarb is > 40 will give a dose of Diamox and if it is less than [address] brain Charges/Coding Visit Charges Inpatient E&M: 57328 Subs Hosp L1
[2024-01-15 10:11] LABS: Hemoglobin 9.3 g/dL (12.0-15.0); Mean Corp Hgb Conc 32.1 g/dL (32-36); Mean Corpuscular Hgb 29.7 pg (27.0-32.0); Mean Corpuscular Volume 92.7 fL (81-99); Mean Platelet Vol. 9.6 fl (6.2-12.0); Platelet Count 256 K/mm3 (150-450); RBC Distribution Width CV 14.7 % (11.6-14.6); RBC Distribution Width SD 50.1 fl (35.1-43.9); Red Blood Count 3.13 M/mm3 (4.2-5.4); White Blood Count 6.1 K/mm3 (4.4-11.0)
[2024-01-15] MEDS: Senna/Docusate Sodium 1 Tablet 2 TABLET PO ×2 (10:17→21:41)
[2024-01-15] MEDS: NYSTATIN 500,000 UNIT/5 ML UDC 500000 UNIT PO ×4 (10:20→21:40)
[2024-01-15] MEDS: Menthol/Lanolin/Calamine/Znox 113 GM Tube 1 APPLIC TOPICAL ×2 (10:21→22:05)
[2024-01-15 10:23] LABS: Anion Gap 6 (5-15); BUN 9 mg/dL (7-18); BUN/Creat Ratio 16.7 RATIO (10-20); Calcium,Total 9.1 mg/dL (8.5-10.1); Chloride 89 mmol/L (98-107); Creatinine, Serum 0.54 mg/dL (0.55-1.02); EST Glomerular Filtration Rate 117 mL/min (>60); Est Glom Filt Rate - Afr Amer 141 mL/min (>60); Estimated Creatinine Clearance 40.44 ml/min; Glucose 164 mg/dL (74-106); Potassium 2.8 mmol/L (3.5-5.1); Sodium Level 133 mmol/L (136-145)
[2024-01-15] MEDS: Sertraline 100 MG Tablet PO (12:21)
[2024-01-15 13:05] LABS: Hemoglobin A1c 5.2 % (3.8-5.6)
[2024-01-15] MEDS: Sodium Chloride 0.65% 1 SPRAY SPRAY.BTL 2 SPRAY NASAL (15:49)
[2024-01-15] MEDS: MELATONIN 3 MG TABLET 1.5 MG PO (21:42)
[2024-01-15] MEDS: Atorvastatin Calcium 10 MG Tablet PO (21:42)
[2024-01-16] MEDS: Acetaminophen 325 MG Tablet 650 MG PO ×4 (04:09→21:15)
[2024-01-16] MEDS: Sodium Chloride 0.65% 1 SPRAY SPRAY.BTL 2 SPRAY NASAL (04:11)
[2024-01-16 04:20] VITALS: PULSE 78; RESP 8; O2SAT 98
[2024-01-16] MEDS: Albuterol 2.5 MG/3 ML VIAL.NEB. INHALATION ×3 (04:20→16:15)
[2024-01-16] MEDS: Enoxaparin 40 MG/0.4 ML Syringe SC (05:08)
[2024-01-16 07:13] VITALS: BP 129/68; PULSE 90; RESP 18; TEMP 36.5; O2SAT 94
[2024-01-16] MEDS: Multivitamins,Therapeutic Tablet 1 TABLET PO (07:47)
[2024-01-16] MEDS: Sodium Chloride 1 GM Tablet PO ×3 (07:47→17:26)
[2024-01-16] MEDS: busPIRone 5 MG Tablet 2.5 MG PO ×2 (07:47→15:34)
[2024-01-16] MEDS: Cholecalciferol (VIT D3) 25 MCG TABLET (1,000 UNITS) PO (07:47)
[2024-01-16] MEDS: Senna/Docusate Sodium 1 Tablet 2 TABLET PO (07:47)
[2024-01-16] MEDS: Menthol/Lanolin/Calamine/Znox 113 GM Tube 1 APPLIC TOPICAL ×2 (08:01→21:23)
--- NOTE | 2024-01-16 09:47 | PCM.PROGNOTE ---
Subjective Subjective Afebrile VSS Maintaining appropriate oxygen saturation-she is 94 to 98% saturated on a 1 L nasal cannula at rest. She requires 3 L with exertion. Oral intake - FOOD refused breakfast this morning. FLUIDS poor 2 bowel movements yesterday and 1 today. Discussed with nursing - Requested breathing tx PRN 3 times yesterday for total of 6 albuterol treatments. Reviewed the THERAPY notes Medication list reviewed. Adelita tells me that she felt more SOB yesterday but, today she states she is at her baseline and is not feeling SOB. She denies cough and also denies sore throat, rhinitis and JJ. She is feeling chilled today but, no rigors. Randy CP, N/V/abd pain. she is calm and not tachypneic. No labored breathing. She told me her legs feel tired and then when I asked about pain she told me her calves are sore. Sure confirms for me that she had a allergic reaction to intravenous iron and the reaction was a grand mall seizure. To her knowledge she tolerates oral iron. Hemoglobin A1c is 5.2%. Objective Data Objective Data Vital Signs: Vital Signs Temp Pulse Resp BP Pulse Ox O2 Del Method O2 Flow Rate 97.7 F L 90 18 129/68 H 94 Nasal Cannula 1 01/16/24 07:13 01/16/24 07:13 01/16/24 07:13 01/16/24 07:13 01/16/24 07:13 01/16/24 08:47 01/16/24 08:47 FiO2 26 01/09/24 22:02 Oxygen Flow Rate (L/min) 1 Oxygen Delivery Method Nasal Cannula Weight: 95 lb 14.417 oz Body Mass Index (BMI) 19.3 Intake & Output: Intake and Output for Last 24 Hours 01/14/24 01/15/24 01/16/24 23:59 23:59 23:59 Intake Total 1145 / 1145 830 / 830 60 / 60 Output Total 1000 / 1000 750 / 750 600 / 600 Balance 145 / 145 80 / 80 -540 / -540 Lab / Micro Data 01/15/24 10:00 01/15/24 10:00 Labs: Laboratory Results - last 24 hr 01/15/24 10:00: WBC 6.1, RBC 3.13 L, Hgb 9.3 L, Hct 29.0 L, MCV 92.7, MCH 29.7, MCHC 32.1, RDW Std Deviation 50.1 H, RDW Coeff of [place] 14.7 H, Plt Count 256, MPV 9.6, Sodium 133 L, Potassium 2.8 L, Chloride 89 L, Carbon Dioxide 38.0 H, Anion Gap 6, BUN 9, Creatinine 0.54 L, Estim Creat Clear Calc 40.44, Est GFR (MDRD) Af Amer 141, Est GFR (MDRD) Non-Af 117, BUN/Creatinine Ratio 16.7, Glucose 164 H, Hemoglobin A1c 5.2, Calcium 9.1 Micro: Microbiology 01/11/24 14:20 Stool Stool Occult Blood (ROSY) - Final Physical Exam Const alert Constitutional Narrative: She was sleeping when I entered the room but, she aroused easily and was alert and appropriate. She is calm. General Appearance: cooperative Orientation / Consciousness: confused HEENT normocephalic, head/scalp atraumatic and hearing grossly normal bilaterally Eyes PERRL, EOMs intact bilaterally, conjunctivae normal and no scleral icterus Eyes Narrative: No discharge from the eyes and no mattering of the eyelashes. 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 She also tells me that she had a stent in the right carotid. Chest Chest: symmetrical chest wall rise Resp normal respiratory effort Resp Narrative: Very diminished throughout. She has no wheezing. There are coarse crackles in the lower L anterior chest that do no resolve after a few deep breaths. Effort and Inspection: Negative for tachypneic, labored or uses accessory muscles Auscultation: diminished lung sounds diffuse (Marked decrease in breath sounds/air exchange in all lung gutierrez. No wheezes and no crackles.) Cardio regular rate, regular rhythm and no gallops Cardio Narrative: The PMI is displaced inferior and medial......consistent with hyperinflation of the lungs. She has a systolic MM at the second RICS and the apex. GI normal to inspection, nondistended, normoactive bowel sounds, soft to palpation and non-tender GI Narrative: No pain with palpation. Back/Spine Back/Spine Narrative: No pain with palpation over the cervical, thoracic and lumbar vertebrae. Extremity no calf tenderness and no pedal edema Extremity Narrative: Negative Haley's. No swelling and no redness and no increased warmth to touch. General Extremity: Negative for edema Skin no wounds and no jaundice Skin Narrative: No rashes General Skin Exam: no breakdown and dry skin Rashes: no rashes Wounds: Negative for wounds noted Neuro CN's II-XII intact bilaterally and no focal motor deficits Neuro Narrative: Generalized weakness. Psych affect normal Psych Narrative: Less needy and not on the call light as much just to have someone in her room. Appearance: appropriate Attitude: engaged, No withdrawn, No guarded, No agitated and No aggressive Activity / Motor Behavior: Negative for restless Speech: normal speech Mood & Affect: Negative for irritable, sad or tearful Thought Process: normal thought process Attention / Concentration: attention grossly intact Memory / Cognition: other Short-term memory is impaired Insight: fair Judgement: fair Assessment & Plan Assessment/Plan (1) Physical debility: (2) Subarachnoid hemorrhage: (3) Subdural hematoma: (4) Hyponatremia: PLAN: Chronic, stable (5) Metabolic alkalosis: (6) Normochromic normocytic anemia: (7) Chronic respiratory failure with hypoxia and hypercapnia: (8) Hypokalemia: (9) Iron deficiency anemia: QUALIFIERS: Iron deficiency anemia type: unspecified iron deficiency Qualified Code(s): D50.9 - Iron deficiency anemia, unspecified PLAN: Plan 1. Continue therapy 2. Supplement potassium and recheck a K in the AM 3. Etiology of the anemia? TSH is normal. Stool is heme negative. MCV is normal but, RDW is elevated. Will check iron studies, B12 and folate today. 4. CXR today 5. She had a severe reaction to intravenous Venofer. Does not recall any reaction to oral iron. Will start ferrous sulfate 325 mg daily. 6. Plan transfer tomorrow to either [facility] living or [facility]. Charges/Coding Visit Charges Inpatient E&M: 57521 [facility] Hosp L1
[2024-01-16 10:16] VITALS: BMI 18.9
--- NOTE | 2024-01-16 10:29 | RAD_ITS ---
INDICATION: SOB EXAMINATION/TECHNIQUE: X-RAY - XR Chest 2 Views COMPARISON: Prior study dated: 10/29/2023 FINDINGS: LINES/DEVICES: None. LUNGS: No consolidation, edema or effusion. No pneumothorax. MEDIASTINUM AND CARDIOVASCULAR STRUCTURES: Cardiac silhouette not enlarged. Central airways and mediastinal contour are unremarkable. BONES AND SOFT TISSUES: Compression fractures of mid thoracic vertebrae of undetermined age and likely chronic. RAD/Chest PA and Lateral IMPRESSION: No radiographic evidence of acute cardiopulmonary disease. Electronically Signed: Genaro May MD at 11:11 EDT ,
[2024-01-16 10:45] VITALS: PULSE 70; RESP 16
[2024-01-16] MEDS: Sertraline 100 MG Tablet PO (11:14)
[2024-01-16] MEDS: Potassium Chloride Oral Tablet 20 MEQ PO ×3 (11:14→18:02)
[2024-01-16 12:13] LABS: Vitamin B12 293 pg/mL (211-911)
[2024-01-16 12:19] LABS: Ferritin 32 ng/mL (8-252); Iron 21 ug/dL (50-170); Iron Binding Capacity,Total 333 ug/dL (250-450); PERCENT IRON SATURATION 6.3 % (15.0-55.0)
[2024-01-16 13:39] VITALS: O2SAT 94
--- NOTE | 2024-01-16 15:51 | CASEMGMT ---
Social Work [facility] stated they can take patient but needs more information for insurance pre-auth and would need PASRR and Negative COVID test. This worker let patient know this. She asked about the pricing and if insurance was going to cover it. She asked to call son to discuss. This worker left message for son and he returned call and left voicemail for SW stating [facility] is going to come over today to assess patient to see if she would be appropriate to return to [place]. SW did receive a phone call from Miranda at [facility] who stated she is coming over to evaulate patient today. This worker did provide update from therapy notes on patient's status. This worker also sent [facility] requested clinical information. Awaiting to here if [facility] will accept patient back. If not, will proceed with discharge to [facility]. GILLIAN Taylor
[2024-01-16 16:15] VITALS: PULSE 79; RESP 20
--- NOTE | 2024-01-16 16:15 | CASEMGMT ---
Social Work SW complete patient PASSR for [facility]. SW notified Physician Attending, Dr. Geraldine Galvez. Patient anticipate onsite review from [facility] for potential return to facility. SW to follow for transition of care support. GERMAIN Crespo
[2024-01-16] MEDS: Ferrous Sulfate 325 MG Tablet PO (17:26)
--- NOTE | 2024-01-16 17:39 | NURSING ---
Pt received new orders for labs [iron studies, b12, folate], supplemental potassium and check K levels tomorrow morning [for K level 2.8 yesterday], ferrous sulfate 325mg daily, and CXR. Hgb 9.3 yesterday. Pt has allergy to iron listed on chart. Pt reports having seizures after receiving IV iron, is in agreement with plan to take oral iron; see Dr. Galvez's note. CXR done today, impression: No radiographic evidence of acute cardiopulmonary disease. (Dr. May). Pt has been using call light repeatedly throughout day and asking staff for assistance with tasks within her abilities; encouragement to perform own ADLs effective. Pt has been ambulating well throughout day, no shortness of breath episodes noted; continues on 1L 02 nasal cannula. Pt plans to transfer tomorrow to either [facility] or [facility].
--- NOTE | 2024-01-16 18:02 | PCM.TXEXTCAR ---
Diet Diet Order/Speech Therapy: 01/07/24 12:48 Diet: Regular - General Type of Dietary Supplement:: Magic Cup Dessert Diet Comments: magic cup chocolate w/ l & d- do not give more than 1 ice cream at a time Routine Orders/Code Status Enema Type: Fleetz Enema Frequency: Daily PRN Suppository Type: Dulcolax 10mg Suppository Frequency: Daily PRN O2 Liters per Minute: 1 LPM at rest and increase to 3 LPM with therapy/exertion. O2 Frequency: Continuous Code Status: DNRCC-A (no intubation) Suggestions for Active Care Positions to Avoid: avoid prolonged lying in the bed. Hours to sit in a chair: 3 Times a day to sit in chair: 3 Therapies Weight Bearing: Full weight bearing Physical Therapy: Eval and Treat Occupational Therapy: Eval and Treat Speech Therapy: Eval and Treat Problem/Diagnosis (1) Physical debility: Status: Acute Code(s): R53.81 - Other malaise Plan: Not able to do 3 hours of therapy daily. Refuses therapy at times. Has failed SNF a few times in the past few months. More appropriate for an ECF. She has severe COPD with hypoxemia and hypercarbia and she also has iron deficiency. All of these things contribute to HARPER with even minimal activity. (2) Subarachnoid hemorrhage: Status: Acute Code(s): I60.9 - Nontraumatic subarachnoid hemorrhage, unspecified Plan: Pt does not recall falling but, she has a poor short term memory and I suspect she did fall. The hypercarbia contributes to the drowsiness and poor memory. I feel she needs more supervision than she is able to get at assisted living. 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 She auto restricts her fluids and most days drinks only 1,000 - 1200 cc, sometimes less. Will continue with salt tabs. TSH and ACTH are within normal limits. Comment: Acute on chronic secondary to cerebral salt wasting. Chronically with mild SIADH. (5) Metabolic alkalosis: Status: Acute Code(s): E87.3 - Alkalosis Plan: This is chronic and it is compensatory for chronic CO2 retention due to severe chronic lung disease. She requires 1 LPM of O2 while at rest and up to 3 liters with exertion. Maintain the O2 sat between 90-94% and no higher. With the decrease in the oxygen supplementation the serum bicarb is down to 33. (6) Normochromic normocytic anemia: Status: Acute Code(s): D64.9 - Anemia, unspecified Plan: the anemia is N/N but the RDW is elevated and the iron studies are indicative of iron deficiency. She got IV Venofer in the past and had a grand mal seizure. She has been started on an oral iron supplement while on rehab. Stool was Hemoccult negative on 01/11/2024. Anemia contributes to HARPER. Would recheck serum iron, TIBC and % iron saturation in 1 month to see if the iron stores are increasing on oral iron. (7) Chronic respiratory failure with hypoxia and hypercapnia: Status: Chronic Code(s): J96.11 - Chronic respiratory failure with hypoxia; J96.12 - Chronic respiratory failure with hypercapnia Plan: Will follow up in the pulmonary office with Lluvia Fung NP post DC from rehab for full PFT's and a TTE. She was seen by Dr. Issa Gasca while in the hospital. She has no wheezing and there is no indication for inhaled steroids at this time. Will continue Albuterol aerosols Q 4 H while awake and Q 2H PRN SOB/wheezing. (8) Hypokalemia: Status: Acute Code(s): E87.6 - Hypokalemia Plan: This is in part due to elevated bicarb pushing the K into the cells. she was given potassium supplementation on 01/16/24 for a potassium of 2.8. Recheck on 01/17/24 was 3.9. (9) Iron deficiency anemia: Status: Acute Code(s): D50.9 - Iron deficiency anemia, unspecified (10) Anxiety and depression: Status: Acute Code(s): F41.9 - Anxiety disorder, unspecified; F32.A - Depression, unspecified Plan: She is taking Sertraline but, she was quite anxious at admission to rehab. Remeron was recently added to the drug regimen however, this made her very drowsy with increased confusion. would avoid sedating medications. Melatonin 3 mg also caused increased confusion and drowsiness during the day. she is tolerating 1.5 mg of Melatonin and is sleeping better. She was started on Buspar 2.5 mg BID and she is less anxious and not ringing out for the nurses constantly. She is afraid to be alone at times and I suspect afraid of dying. would not go any higher than 2.5 mg TID on the Buspar. She would benefit from psychotherapy if available. (11) Thyroid nodule: Status: Acute Code(s): E04.1 - Nontoxic single thyroid nodule Plan: This can be further evaluated as an OP. TSH is normal at 0.66. (12) Vitamin D deficiency: Status: Acute Code(s): E55.9 - Vitamin D deficiency, unspecified Plan: Continue cholecalciferol. In light of the many thoracic vertebral fractures if she has not had a BMD test in the past 1 year would get a DEXA. I suspect she has osteoporosis. (13) Chronic pain: Status: Chronic Code(s): G89.29 - Other chronic pain Plan: Adequately controlled with as needed Tylenol. Will continue. She also has a lidocaine patch on her back which seems to help. Allergies/Procedures Done in Hospital Allergies iron [From Venofer] Allergy (Severe, Verified 01/16/24 16:15) SEIZURE GRAND MAL SEIZURE varenicline [From Chantix] Allergy (Intermediate, Verified 10/29/23 14:25) NEEDS FOLLOW-UP Procedures: None Type of Care/Length of Stay Estimated LOS: More Than 30 Days Type of Care Needed: [facility]/Assisted Living Rehab Potential: Fair Prognosis: Fair Additional Orders/Day of Discharge H&P will serve as current which was dated: 01/09/24 Day of Discharge: 01/18/24 Dietary and Speech Recommendations Dietitian Recommendations/Changes: Continue with Regular diet for liberalization as well as fluid restriction of 1000mL per MD. Continue Magic Cup BID w/ lunch and dinner to help increase oral intakes. Carbohydrates increase CO2 production.....would not give concentrated carbohydrates. Speech Linguistic Eval Summary: Pt able to participate in conversation with multiple communication partners. Pt able to navigate menu and order food with MIN help. Pt able to comment on dietary restrictions/preferences. Pt able to comprehend liquid restriction. Pt requested repetition of lunch order. Pt asked questions about meal options. Pt able to recall dietary information from previous facilities and attempted to apply medical advice here. Pt completed the Mini Mental State Examination: -orientation: 07/26 - immediate recall: 12/17 - mental manipulation: 01/19 - delayed recall: 0/3 - confrontational namin/2 - Repetition: 10/17 - auditory comprehension: 12/17 - reading/following directions: 10/17 - writing/sentence formulation: 10/17 - visual perception: 10/17 Pt scored 26/30 which indicates no cognitive impairment (24-30 no cognitive impairment) Bedside nurse reported that pt has low sodium that can contribute to delay in expression of speech. She reported that pt needs cues/reminders to complete tasks - example given was pt needed 5 reminders to put her leg down this morning in bed. Pt reported that she has difficulty with memory. She reported she has difficulty with short term memory and is beginning to have difficulty with usp memory. Follow Up Care Please follow up with your Primary Care Physician in: in 1-2 weeks post DC from rehab Please Follow Up With: Lluvia Fung NP When: Pulmonary office at [facility]. Seen by Dr. Gasca in the hospital. Please Follow Up With: palliative care When: Referral made by SW and they will follow up with her following discharge Discharge Plan Admission Admit Date/Time: 01/07/24 12:15 Primary Reason for Your Visit: change of status/generalized weakness due to SDH/SAH Attending Provider: Jaymie Galvez Primary Care Provider: Anthony Moralez Consulting Providers: Rickie Zaidi; Kisha Castro; Ashwini Rowley; Berenice Friend REHABILITATION TECHNICIAN Instructions Additional Instructions / Restrictions: 1. Maintain the oxygen saturation at 90-94% and no higher due to chronic CO2 retention. We have been using 1 LPM at rest and 3 LPM with exertion. Serum bicarb decreased from 38-40 to 33 at discharge by decreasing the O2 supplementation to maintain the pulse ox at 90-94% and no higher. 2. Will follow up in the pulmonary office with Lluvia Fung NP within 1-2 weeks post DC from rehab to arrange for a TTE and full PFT's. We suspect she has COPD but, to her knowledge she has never had PFT's in the past. 3. She is very sensitive to any medications that can cause drowsiness. did not tolerate Melatonin 3 mg and Buspar 10 mg due to increased drowsiness and confusion. tolerating Melatonin 1.5 mg at HS and most nights is sleeping well. She is tolerating Buspar 2.5 mg BID and her anxiety has improved. 4. In the past she had a grand mall seizure when receiving intravenous Venofer. She had a dose of ferrous sulfate orally 1 day prior to discharge and has had no adverse reactions. Repeat a CBC in 1 week and iron studies in 1 month. 5. An incidental finding at previous hospital is a thyroid nodule which can be evaluated following DC from acute rehab. Discharge Orders/Prescriptions Prescriptions: New buspirone 5 mg Tablet 2.5 mg PO 0800,1600 Qty: 1 0RF ferrous sulfate [FeroSul] 325 mg (65 mg iron) Tablet 325 mg PO DAILY@1700 Qty: 1 0RF sennosides-docusate sodium [Stool Softener-Stimulant Laxat] 8.6-50 mg Tablet 2 tab PO BID Qty: 1 0RF melatonin 3 mg Tablet 1.5 mg PO QHS Qty: 1 0RF Deep Sea Nasal 0.65 % Aerosol,[place] 2 spray NASAL Q4H PRN (Reason: Nasal Dryness) Qty: 1 0RF potassium chloride 10 mEq capsule, extended release 10 meq PO DAILY Qty: 1 0RF Continued sertraline 100 mg tablet 100 mg PO DAILY acetaminophen 325 mg tablet 650 mg PO Q6H PRN (Reason: pain) albuterol sulfate 2.5 mg /3 mL (0.083 %) solution for nebulization 2.5 mg inhalation 4X/DAY atorvastatin 10 mg tablet 10 mg PO QHS Rx Instructions: change to HS per cholecalciferol (vitamin D3) 10 mcg (400 unit) capsule 800 unit PO DAILY lidocaine 4 % adhesive patch,medicated 1 patch topical DAILY Rx Instructions: may leave on for up to 12 hrs multivitamin [Daily Multi-Vitamin] Tablet 1 tab PO DAILY sodium chloride 1,000 mg tablet,soluble 1,000 mg PO BID Discontinued Breztri Aerosphere 160-9-4.8 mcg/actuation HFA aerosol inhaler 1 inh inhalation DAILY PRN sertraline 25 mg tablet 25 mg PO DAILY ryjgmoqmkw-frkljwo-nkehchfiaj 10-2.5 mg lozenge 1 hector mucous membrane 4X/DAY PRN melatonin 3 mg tablet 3 mg PO QHS Referrals / Follow Up: Cristhian Cheatham DO [Med Staff - Active Staff] - 04/02/24 1:45 pm (you will see Lluvia Fung CNP) Anthony Moralez MD [Primary Care Provider] - Disposition Disposition (needs filled in before D/C Order can be placed): Retirement Facility (9) Iron deficiency anemia Qualifiers: Iron deficiency anemia type: unspecified iron deficiency Qualified Code(s): D50.9 - Iron deficiency anemia, unspecified
[2024-01-16 20:00] VITALS: BP 143/76; PULSE 86; RESP 18; TEMP 36.9; O2SAT 98
[2024-01-16] MEDS: MELATONIN 3 MG TABLET 1.5 MG PO (21:16)
[2024-01-16] MEDS: Atorvastatin Calcium 10 MG Tablet PO (21:18)
[2024-01-16] MEDS: NYSTATIN 500,000 UNIT/5 ML UDC 500000 UNIT PO (21:20)
[2024-01-17 00:16] VITALS: PULSE 90; RESP 24; O2SAT 98
[2024-01-17] MEDS: Albuterol 2.5 MG/3 ML VIAL.NEB. INHALATION ×4 (00:16→22:38)
[2024-01-17] MEDS: Acetaminophen 325 MG Tablet 650 MG PO ×3 (01:45→21:28)
[2024-01-17] MEDS: Enoxaparin 40 MG/0.4 ML Syringe SC (05:31)
[2024-01-17 07:20] VITALS: PULSE 108; RESP 24
[2024-01-17 07:22] VITALS: BP 143/86; PULSE 82; RESP 16; TEMP 36.6; O2SAT 97
[2024-01-17 08:11] LABS: Anion Gap 6 (5-15); BUN 5 mg/dL (7-18); BUN/Creat Ratio 14.8 RATIO (10-20); Calcium,Total 9.5 mg/dL (8.5-10.1); Chloride 92 mmol/L (98-107); Creatinine, Serum 0.34 mg/dL (0.55-1.02); EST Glomerular Filtration Rate 200 mL/min (>60); Est Glom Filt Rate - Afr Amer 242 mL/min (>60); Estimated Creatinine Clearance 39.51 ml/min; Glucose 109 mg/dL (74-106); Potassium 3.9 mmol/L (3.5-5.1); Sodium Level 131 mmol/L (136-145)
[2024-01-17] MEDS: Multivitamins,Therapeutic Tablet 1 TABLET PO (08:13)
[2024-01-17] MEDS: Cholecalciferol (VIT D3) 25 MCG TABLET (1,000 UNITS) PO (08:13)
[2024-01-17] MEDS: busPIRone 5 MG Tablet 2.5 MG PO ×2 (08:13→16:32)
[2024-01-17] MEDS: Sodium Chloride 1 GM Tablet PO ×3 (08:13→16:31)
[2024-01-17] MEDS: Menthol/Lanolin/Calamine/Znox 113 GM Tube 1 APPLIC TOPICAL ×2 (08:16→21:29)
--- NOTE | 2024-01-17 09:51 | CASEMGMT ---
Social Work SW did not receive any updates from son or [facility] this morning. This worker telephoned [facility] and spoke with Miranda for update. Miranda stated she ended up not making it over to do evaluation. This worker resent some clinical information for the facility to review. Miranda stated she will get back with SW on decision. [facility] is working on pre cert with pt. insurance so they can take her if [facility] is unable. This worker then met with patient and she stated she hasn't heard anything from son if he can take her home. SW completed discharge assessment with patient. SW will follow up with both facilities to plan for discharge today. SW left message for son asking him to call back to let us know if he can transport patient at discharge. Yadira FRENCH
--- NOTE | 2024-01-17 10:16 | PCM.DC.SUM ---
Providers Date of Admission: 01/07/24 Primary Care Physician: Dr. Anthony Moralez MD Consultations 01/09/24 16:45 Consult: Table Games Supervisor / Pulmonary Medicine Routine Consulting Provider: Intensivists/Pulmonary Med Reason for Consult: chronic resp failure with hypoxia and hypercarbia EMERGENT Consult: No Notified: Yes Date Notified: 01/09/24 Time Notified: 16:45 Method of Notification: Verbal Method of Consult:: In-Person 01/16/24 10:42 Consult: Hospice / Palliative Care Routine Consulting Provider: [facility] Reason for Consult: Palliative Care, Severe COPD EMERGENT Consult: No Notified: Yes Date Notified: 01/16/24 Time Notified: 10:42 Method of Notification: Verbal Reason For Visit: SDH Diagnosis Discharge Diagnosis (1) Physical debility: Status: Acute Code(s): R53.81 - Other malaise Plan: Not able to do 3 hours of therapy daily. Refuses therapy at times. Has failed SNF a few times in the past few months. More appropriate for an ECF. She has severe COPD with hypoxemia and hypercarbia and she also has iron deficiency. All of these things contribute to HARPER with even minimal activity. She will follow-up in the pulmonary office at [facility] with Lluvia Fung CONTINUING EDUCATION DEAN to arrange for pulmonary function tests and a transthoracic echocardiogram. (2) Subarachnoid hemorrhage: Status: Acute Code(s): I60.9 - Nontraumatic subarachnoid hemorrhage, unspecified Plan: Pt does not recall falling but, she has a poor short term memory and I suspect she did fall. The hypercarbia contributes to the drowsiness and poor memory. I feel she needs more supervision than she is able to get at assisted living. 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 She auto restricts her fluids and most days drinks only 1,000 - 1200 cc, sometimes less. Will continue with salt tabs. TSH and ACTH are within normal limits. Sodium has been ranging from 1 31-1 33. (5) Metabolic alkalosis: Status: Acute Code(s): E87.3 - Alkalosis Plan: This is chronic and it is compensatory for chronic CO2 retention due to severe chronic lung disease. She requires 1 LPM of O2 while at rest and up to 3 liters with exertion. Maintain the O2 sat between 90-94% and no higher. With the decrease in the oxygen supplementation the serum bicarb is down to 33. (6) Normochromic normocytic anemia: Status: Acute Code(s): D64.9 - Anemia, unspecified Plan: the anemia is N/N but the RDW is elevated and the iron studies are indicative of iron deficiency. She got IV Venofer in the past and had a grand mal seizure. She has been started on an oral iron supplement while on rehab. Stool was Hemoccult negative on 01/11/2024. Anemia contributes to HARPER. Would recheck serum iron, TIBC and % iron saturation in 1 month to see if the iron stores are increasing on oral iron. (7) Chronic respiratory failure with hypoxia and hypercapnia: Status: Chronic Code(s): J96.11 - Chronic respiratory failure with hypoxia; J96.12 - Chronic respiratory failure with hypercapnia Plan: Will follow up in the pulmonary office with Lluvia Fung NP post DC from rehab for full PFT's and a TTE. She was seen by Dr. Issa Gasca while in the hospital. She has no wheezing and there is no indication for inhaled steroids at this time. Will continue Albuterol aerosols Q 4 H while awake and Q 2H PRN SOB/wheezing. (8) Hypokalemia: Status: Acute Code(s): E87.6 - Hypokalemia Plan: This is in part due to elevated bicarb pushing the K into the cells. she was given potassium supplementation on 01/16/24 for a potassium of 2.8. Recheck on 01/17/24 was 3.9. (9) Iron deficiency anemia: Status: Acute Code(s): D50.9 - Iron deficiency anemia, unspecified Qualifiers: Iron deficiency anemia type: unspecified iron deficiency Qualified Code(s): D50.9 - Iron deficiency anemia, unspecified (10) Anxiety and depression: Status: Acute Code(s): F41.9 - Anxiety disorder, unspecified; F32.A - Depression, unspecified Plan: She is taking Sertraline but, she was quite anxious at admission to rehab. Remeron was recently added to the drug regimen however, this made her very drowsy with increased confusion. would avoid sedating medications. Melatonin 3 mg also caused increased confusion and drowsiness during the day. she is tolerating 1.5 mg of Melatonin and is sleeping better. She was started on Buspar 2.5 mg BID and she is less anxious and not ringing out for the nurses constantly. She is afraid to be alone at times and I suspect afraid of dying. would not go any higher than 2.5 mg TID on the Buspar. She would benefit from psychotherapy if available. (11) Thyroid nodule: Status: Acute Code(s): E04.1 - Nontoxic single thyroid nodule Plan: This can be further evaluated as an OP. TSH is normal at 0.66. (12) Vitamin D deficiency: Status: Acute Code(s): E55.9 - Vitamin D deficiency, unspecified Plan: Continue cholecalciferol. In light of the many thoracic vertebral fractures if she has not had a BMD test in the past 1 year would get a DEXA. I suspect she has osteoporosis. (13) Chronic pain: Status: Chronic Code(s): G89.29 - Other chronic pain Plan: Adequately controlled with as needed Tylenol. Will continue. She also has a lidocaine patch on her back which seems to help. Medications at Discharge Home Medications acetaminophen 325 mg tablet 650 mg PO Q6H PRN pain 01/07/24 albuterol sulfate 2.5 mg/3 mL (0.083 %) solution for nebulization 2.5 mg inhalation 4X/DAY wheezing 01/07/24 atorvastatin 10 mg tablet 10 mg PO QHS cholesterol 01/07/24 cholecalciferol (vitamin D3) 10 mcg (400 unit) capsule 800 unit PO DAILY vitamin 01/07/24 lidocaine 4 % topical patch 1 patch topical DAILY back pain 01/07/24 multivitamin (Daily Multi-Vitamin tablet) 1 tab PO DAILY vitamin 01/07/24 sertraline 100 mg tablet 100 mg PO DAILY mood 01/07/24 sodium chloride 1,000 mg soluble tablet 1,000 mg PO BID vitamin 01/07/24 buspirone 5 mg tablet 2.5 mg (1/2 x 5 mg) PO 0800,1600 #1 TAB 01/17/24 ferrous sulfate 325 mg (65 mg iron) tablet (FeroSul) 325 mg PO DAILY@1700 #1 TAB 01/17/24 melatonin 3 mg tablet 1.5 mg (1/2 x 3 mg) PO QHS #1 TAB 01/17/24 potassium chloride 10 mEq capsule,extended release 10 meq PO DAILY #1 cap 01/17/24 sennosides 8.6 mg-docusate sodium 50 mg tablet (Stool Softener-Stimulant Laxative) 2 tab PO BID #1 TAB 01/17/24 sodium chloride 0.65 % nasal spray aerosol (Deep Sea Nasal) 2 spray NASAL Q4H PRN Nasal Dryness #1 mL 01/17/24 Hospital Course Operations None Procedures None Summary of Care Provided Minutes Spent on Discharge: 45 Hospital Course: STACI RANDOLPH, is a 78 YO F with a PMH of peripheral arterial disease, stenosis of the brachiocephalic artery, tobacco dependence, hypertension, bilateral carotid artery stenosis, carotid endarterectomy in 2018, iron deficiency anemia, closed fracture of thoracic vertebrae in June 2023, history of lumbar laminectomy L4, 5 and S1, occlusion of the left subclavian artery, history of an intravascular stent placement in July 2023, COPD with hypoxia and hypercapnia, depression, chronic hyponatremia, vitamin D deficiency, chronic low back pain, mixed hyperlipidemia, restless leg syndrome, coronary artery disease and anxiety/depression who presented to an emergency department from [facility] on 12/31/2023 with confusion and shortness of breath. She had facial bruising and imaging showed an intracerebral hemorrhage (subdural hematoma/subarachnoid hemorrhage) along with acute on chronic thoracic fractures (T2-T10). She had waxing and waning periods of mentation but repeat CT imaging demonstrated stability. She has had chronic hyponatremia (most likely due to SIADH) in the past but, this was exacerbated by cerebral salt wasting related to the intracerebral bleed. She was started on salt tabs. Sodium was 130 at presentation to rehab. While at [facility] she was seen by PT/OT/ST and acute inpt rehab was recommended at OR. She was transferred to [facility] acute rehab on 01/07/24 for 3 hours of therapy daily to restore function at or near her level prior to the recent bleed. At presentation to acute rehab she was quite drowsy and confused with poor short term memory. Despite being a CO2 retainer she was on oxygen supplementation that kept her O2 sat in the high 90's. She was quite anxious and afraid of being alone. She was ringing her call light fairly constantly. She had been prescribed BuSpar 10 mg every 8 hours as needed anxiety but she herself has stopped this medication due to increased confusion and drowsiness after taking it. She was taking melatonin 3 mg at at bedtime for insomnia and was quite drowsy in the morning. She was also taking sertraline 125 mg daily. The Buspar was adjusted to 2.5 mg BID and Sertraline was decreased to 100 mg daily. Melatonin was discontinued due to drowsiness in the AM but, it was later restarted at 1.5 mg at HS for persistent insomnia and she is tolerating this dose without excessive drowsiness in the AM. With the adjustments on the medications her anxiety came under better control and she is calmer and no ringing her call light nearly as frequently. Serum bicarb was elevated in the high 30s, up to 40, since July 2023. An ABG was obtained and the pH was 7.39 with a CO2 of 68.5 and an actual bicarb of 41.8. Oxygen was decreased to 1 LPM at rest and 3 LPM with exertion. Serum bicarb prior to DC had come down to 33 and she was much more alert and better able to stay on topic when conversing with me. While in the hospital she was seen by Dr. Issa Gasca from pulmonary. since Staci has never had PFT's he recommended follow up as an OP with the pulmonary office to arrange for full PFT's and a TTE to evaluate for pulmonary HTN. Hemoglobin has been decreased since June 2023 and I have no lab prior to that date. She had normochromic normocytic indices but an increased RDW. Iron studies were consistent with severe iron deficiency and B12 and folate were within normal limits. TSH and cortisol were also within normal limits. The hemoglobin has been stable at 9.3 since admission to acute rehab and a Hemoccult stool was negative. She has had intravenous Venofer in the past and had a grand mal seizure. She was started on an oral iron supplement and had 1 dose prior to DC from rehab and she tolerated this without any adverse effects. Prior to discharge she endured 6 minutes of exercise on the Myagi machine and her oxygen requirement with 6 minutes of exertion is 3 L/min. The goal is to maintain oxygen saturation between 90 and 94 and no higher. When it is higher she retains more CO2 and drowsiness and confusion increase. Staci was not able to consistently do 3 hours of therapy daily. I feel like much of the inability to do 3 hours is due to her preference not to exercise rather than to actual physical inability. She is deconditioned due to inactivity but, I observed her doing 6 minutes on the Nu-Step and with a lot of coaxing she is able to get 3 hours in a day. She often wants help with things that she is able to do by herself, such as putting her socks on and elevating the head of the bed. I encouraged her to do the things she is able to do herself to try and preserve some exercise tolerance but, she continues to request that nursing do most things for her. Lab prior to discharge shows a normal white blood cell count and normal platelets. Hemoglobin is stable at 9.3. She is tolerating an oral iron supplement with no adverse side effects. Sodium is stable between 131 and 133. Chloride was 92 and the serum bicarb is down to 33 from 38-40 earlier in the admission. Serum iron is low at 21 and the iron saturation is very low at 6.3%. Ferritin is 32 which is normal however ferritin is an acute phase reactant and often elevated in the elderly so I considered ferritin at 32 to be significantly diminished. B12 and folate are normal. TSH is normal. Physical Exam Const alert Constitutional Narrative: She is appropriate when I am talking with her but, short term memory is very poor. She is more alert during the day than she was at admission. General Appearance: cooperative HEENT normocephalic, head/scalp atraumatic and hearing grossly normal bilaterally Eyes PERRL, EOMs intact bilaterally, conjunctivae normal and no scleral icterus Eyes Narrative: No discharge from the eyes and no mattering of the eyelashes. 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 She also tells me that she had a stent in the right carotid. Chest Chest: symmetrical chest wall rise Resp normal respiratory effort Resp Narrative: Very diminished throughout. She has no wheezing. There are coarse crackles in the lower L anterior chest that do no resolve after a few deep breaths. Recent CXR showed hyperinflation with no infiltrates, no effusion and no increased PVC. Effort and Inspection: Negative for tachypneic, labored or uses accessory muscles Auscultation: diminished lung sounds diffuse (Marked decrease in breath sounds/air exchange in all lung gutierrez. No wheezes and no crackles.) Cardio regular rate, regular rhythm and no gallops Cardio Narrative: The PMI is displaced inferior and medial......consistent with hyperinflation of the lungs. She has a systolic MM at the second RICS and the apex. GI normal to inspection, nondistended, normoactive bowel sounds, soft to palpation and non-tender GI Narrative: No pain with palpation. Back/Spine Back/Spine Narrative: No pain with palpation over the cervical, thoracic and lumbar vertebrae. Extremity no calf tenderness and no pedal edema Extremity Narrative: Negative Haley's. No swelling and no redness and no increased warmth to touch. General Extremity: Negative for edema Skin no wounds and no jaundice Skin Narrative: No rashes General Skin Exam: no breakdown and dry skin Rashes: no rashes Wounds: Negative for wounds noted Neuro CN's II-XII intact bilaterally and no focal motor deficits Neuro Narrative: Generalized weakness. Psych Psych Narrative: She is needy and is ringing her call light very frequently. When nursing tells her they will be in as soon as they are done caring for the pt they are tending to she continues to ring the call light over and over. She tends to order staff to do things for her and does not ask. I think this has been her baseline for some time. When she gets anxious the BP goes up. She calls nursing to ask if she has had a breathing tx because she can not remember if she received the scheduled tx. She has not wheezed at all during her admission to rehab. I do not know if increasing the Buspar to 2.5 mg TID would help but, would consider. The Buspar does make her drowsy at higher doses. She is sleeping well most nights. Insight is poor. Appearance: appropriate Attitude: engaged, No withdrawn, No guarded, No agitated and No aggressive Activity / Motor Behavior: Negative for restless Speech: normal speech Mood & Affect: anxious; Negative for irritable, sad or tearful Thought Process: normal thought process Thought Content: No suicidality, No delusion(s) and No hallucination(s) Memory / Cognition: other Short-term memory is impaired. Judgement: fair Weight / BMI Weight Weight: 93 lb 11.143 oz Body Mass Index (BMI) 18.9 ABG / Lab / Microbiology Data 01/15/24 10:00 01/17/24 07:35 Laboratory: Laboratory Results - last 24 hr 01/16/24 10:56: Iron 21 L, TIBC 333, Iron Saturation 6.3 L, Ferritin 32, Vitamin B12 293, Folate 24.10 01/17/24 07:35: Sodium 131 L, Potassium 3.9, Chloride 92 L, Carbon Dioxide 33.0 H, Anion Gap 6, BUN 5 L, Creatinine 0.34 L, Estim Creat Clear Calc 39.51, Est GFR (MDRD) Af Amer 242, Est GFR (MDRD) Non-Af 200, BUN/Creatinine Ratio 14.8, Glucose 109 H, Calcium 9.5 Microbiology: Microbiology 01/17/24 06:50 Nasal Secretion SARS-CoV-2 Antigen (Rapid) - Final 01/11/24 14:20 Stool Stool Occult Blood (ROSY) - Final Radiography Diagnostic Testing: Radiology Impression Chest X-Ray 01/16/24 10:29 IMPRESSION: No radiographic evidence of acute cardiopulmonary disease. Electronically Signed: Genaro May MD at 11:11 EDT , D/C Instructions Please Follow Up With: Lluvia Fung NP Meaningful Use Info Meaningful Use Diagnoses (Choose all that apply): None applicable Discharge Plan Admission Admit Date/Time: 01/07/24 12:15 Primary Reason for Your Visit: change of status/generalized weakness due to SDH/SAH Attending Provider: Jaymie Galvez Primary Care Provider: Anthony Moralez Consulting Providers: Rickie Zaidi; Kisha Castro; Ashwini Rowley; Berenice Friend CONTINUING EDUCATION DEAN Instructions Additional Instructions / Restrictions: 1. Maintain the oxygen saturation at 90-94% and no higher due to chronic CO2 retention. We have been using 1 LPM at rest and 3 LPM with exertion. Serum bicarb decreased from 38-40 to 33 at discharge by decreasing the O2 supplementation to maintain the pulse ox at 90-94% and no higher. 2. Will follow up in the pulmonary office with Lluvia Fung NP within 1-2 weeks post DC from rehab to arrange for a TTE and full PFT's. We suspect she has COPD but, to her knowledge she has never had PFT's in the past. 3. She is very sensitive to any medications that can cause drowsiness. did not tolerate Melatonin 3 mg and Buspar 10 mg due to increased drowsiness and confusion. tolerating Melatonin 1.5 mg at HS and most nights is sleeping well. She is tolerating Buspar 2.5 mg BID and her anxiety has improved. 4. In the past she had a grand mall seizure when receiving intravenous Venofer. She had a dose of ferrous sulfate orally 1 day prior to discharge and has had no adverse reactions. Repeat a CBC in 1 week and iron studies in 1 month. 5. An incidental finding at previous hospital is a thyroid nodule which can be evaluated following DC from acute rehab. Discharge Orders/Prescriptions Prescriptions: New buspirone 5 mg Tablet 2.5 mg PO 0800,1600 Qty: 1 0RF ferrous sulfate [FeroSul] 325 mg (65 mg iron) Tablet 325 mg PO DAILY@1700 Qty: 1 0RF sennosides-docusate sodium [Stool Softener-Stimulant Laxat] 8.6-50 mg Tablet 2 tab PO BID Qty: 1 0RF melatonin 3 mg Tablet 1.5 mg PO QHS Qty: 1 0RF Deep Sea Nasal 0.65 % Aerosol,Tiffin 2 spray NASAL Q4H PRN (Reason: Nasal Dryness) Qty: 1 0RF potassium chloride 10 mEq capsule, extended release 10 meq PO DAILY Qty: 1 0RF Continued sertraline 100 mg tablet 100 mg PO DAILY acetaminophen 325 mg tablet 650 mg PO Q6H PRN (Reason: pain) albuterol sulfate 2.5 mg /3 mL (0.083 %) solution for nebulization 2.5 mg inhalation 4X/DAY atorvastatin 10 mg tablet 10 mg PO QHS Rx Instructions: change to HS per cholecalciferol (vitamin D3) 10 mcg (400 unit) capsule 800 unit PO DAILY lidocaine 4 % adhesive patch,medicated 1 patch topical DAILY Rx Instructions: may leave on for up to 12 hrs multivitamin [Daily Multi-Vitamin] Tablet 1 tab PO DAILY sodium chloride 1,000 mg tablet,soluble 1,000 mg PO BID Discontinued Breztri Aerosphere 160-9-4.8 mcg/actuation HFA aerosol inhaler 1 inh inhalation DAILY PRN sertraline 25 mg tablet 25 mg PO DAILY fnnzcgexfi-nkpehys-oqythekcak 10-2.5 mg lozenge 1 hector mucous membrane 4X/DAY PRN melatonin 3 mg tablet 3 mg PO QHS Referrals / Follow Up: Cristhian Cheatham DO [Med Staff - Active Staff] - 04/02/24 1:45 pm (you will see Lluvia Fung AREA SALES MANAGER) Anthony Moralez MD [Primary Care Provider] - Disposition Disposition (needs filled in before D/C Order can be placed): [facility] Charges/Coding Visit Charges Inpatient E&M: 61981 Disch Hosp >30min
--- NOTE | 2024-01-17 11:31 | CASEMGMT ---
Social Work Miranda from [facility] returned call stating they are not able to take patient at this time due to having a flu outbreak and patient needing more assist than they can provide. Will proceed with admission to [facility]. This worker arranged transportation with [facility] to transport and they will rock picker at 3:00 today. This worker met with patient and updated on discharge plans. 11:20am This worker received a phone call from [facility] stating they do have insurance authorization yet and they will not accept patient until the authorization is received. Will put discharge on hold until we receive word that authorization has been received. GILLIAN Taylor
[2024-01-17] MEDS: Sertraline 100 MG Tablet PO (12:20)
--- NOTE | 2024-01-17 14:39 | CASEMGMT ---
Social Work Received phone call from [facility]. They still do not have pre cert back from insurance and asked to move discharge to tomorrow. This worker updated patient. She stated she will let her son know. Transportation is on hold on until tomorrow. Palliative Care updated on patient's discharg plans. GILLIAN Taylor
[2024-01-17] MEDS: Ferrous Sulfate 325 MG Tablet PO (16:32)
[2024-01-17 19:38] VITALS: PULSE 96; RESP 22
[2024-01-17 20:37] VITALS: BP 140/72; PULSE 86; RESP 15; TEMP 36.7; O2SAT 94
[2024-01-17] MEDS: Atorvastatin Calcium 10 MG Tablet PO (21:29)
[2024-01-17] MEDS: MELATONIN 3 MG TABLET 1.5 MG PO (21:29)
[2024-01-17] MEDS: NYSTATIN 500,000 UNIT/5 ML UDC 500000 UNIT PO (21:29)
[2024-01-17] MEDS: Sodium Chloride 0.65% 1 SPRAY SPRAY.BTL 2 SPRAY NASAL (21:32)
[2024-01-17 22:38] VITALS: PULSE 86; RESP 20
[2024-01-18] MEDS: Acetaminophen 325 MG Tablet 650 MG PO ×2 (04:22→11:52)
[2024-01-18] MEDS: Enoxaparin 40 MG/0.4 ML Syringe SC (04:22)
[2024-01-18 04:27] VITALS: BMI 19.1
[2024-01-18 06:47] VITALS: PULSE 100; RESP 20; O2SAT 99
[2024-01-18] MEDS: Albuterol 2.5 MG/3 ML VIAL.NEB. INHALATION ×3 (06:47→16:05)
[2024-01-18 07:03] VITALS: BP 160/80; PULSE 100; RESP 22; TEMP 36.4; O2SAT 92
[2024-01-18] MEDS: Sodium Chloride 1 GM Tablet PO ×3 (08:13→17:00)
[2024-01-18] MEDS: Cholecalciferol (VIT D3) 25 MCG TABLET (1,000 UNITS) PO (08:13)
[2024-01-18] MEDS: Menthol/Lanolin/Calamine/Znox 113 GM Tube 1 APPLIC TOPICAL (08:13)
[2024-01-18] MEDS: busPIRone 5 MG Tablet 2.5 MG PO ×2 (08:13→17:00)
[2024-01-18] MEDS: Multivitamins,Therapeutic Tablet 1 TABLET PO (08:13)
[2024-01-18 11:18] VITALS: PULSE 85; RESP 20
[2024-01-18] MEDS: Sertraline 100 MG Tablet PO (11:52)
--- NOTE | 2024-01-18 15:37 | CASEMGMT ---
Hydraulic Boom Operator SW office received phone call from Karlie at [facility] Karlie asked for clarification on patient's status and goals. This worker provided updates. Karlie stated she will be posting results in portal very soon. This worker contacted Denise at [facility] to let her know to look for results and to update office so we can proceed with DC. Yadira FRENCH
[2024-01-18 16:05] VITALS: PULSE 81; RESP 18
--- NOTE | 2024-01-18 16:57 | CASEMGMT ---
Social Work SW received phone call from [facility] stating they received authorization. They will accept patient today. This worker telephoned [facility] and they will pick patient up within the hour. This worker returned call to Glen at [facility] and updated on transport time. COVID test results and transfer summary sent to [facility] through [facility]. SW notified MD and nursing of discharge time. This worker met with patient and let her know that she is OK to discharge to [facility] today. Pt stated she would notify her son. Yadira FRENCH
[2024-01-18] MEDS: Ferrous Sulfate 325 MG Tablet PO (17:00)
--- NOTE | 2024-01-18 17:17 | NURSING ---
Report given to [facility].
[2024-01-18 17:53] VITALS: BP 151/52; PULSE 87; RESP 18; TEMP 36.5; O2SAT 99
[2024-01-18 17:55] VITALS: BP 151/52; PULSE 87; RESP 18; TEMP 36.5; O2SAT 99
== END 2024-01-18 17:56 | disposition skilled nursing facility (03) | DRG 65 ==
PROVIDERS: Admitting Provider Internal Medicine; PCP Internal Medicine; Visit Provider Internal Medicine
DX: I60.9 Nontraumatic subarachnoid hemorrhage, unspecified (principal); J44.1 Chronic obstructive pulmonary disease with (acute) exacerbation; J96.12 Chronic respiratory failure with hypercapnia; E22.2 Syndrome of inappropriate secretion of antidiuretic hormone; E87.3 Alkalosis; J96.11 Chronic respiratory failure with hypoxia; Z68.1 Body mass index [BMI] 19.9 or less, adult; I62.00 Nontraumatic subdural hemorrhage, unspecified; I73.9 Peripheral vascular disease, unspecified; E04.1 Nontoxic single thyroid nodule; F32.A Depression, unspecified; D50.9 Iron deficiency anemia, unspecified; I10 Essential (primary) hypertension; E78.2 Mixed hyperlipidemia; F41.9 Anxiety disorder, unspecified; I25.10 Atherosclerotic heart disease of native coronary artery without angina pectoris; E55.9 Vitamin D deficiency, unspecified; W19.XXXD Unspecified fall, subsequent encounter; E53.8 Deficiency of other specified B group vitamins; E87.6 Hypokalemia; S22.029D Unspecified fracture of second thoracic vertebra, subsequent encounter for fracture with routine healing; S00.83XD Contusion of other part of head, subsequent encounter; Z87.891 Personal history of nicotine dependence; G89.29 Other chronic pain; Z79.899 Other long term (current) drug therapy; S22.039D Unspecified fracture of third thoracic vertebra, subsequent encounter for fracture with routine healing; S22.049D Unspecified fracture of fourth thoracic vertebra, subsequent encounter for fracture with routine healing; S22.059D Unspecified fracture of T5-T6 vertebra, subsequent encounter for fracture with routine healing; S22.069D Unspecified fracture of T7-T8 vertebra, subsequent encounter for fracture with routine healing; S22.079D Unspecified fracture of T9-T10 vertebra, subsequent encounter for fracture with routine healing; Z99.81 Dependence on supplemental oxygen; G47.00 Insomnia, unspecified; F40.240 Claustrophobia
CPT/HCPCS: 36415; 36600; 71046; 80048; 80053; 82024; 82140; 82274; 82533; 82570; 82607; 82728; 82746; 82803; 83036; 83540; 83550; 83735; 83930; 83935; 84100; 84165; 84300; 84443; 85027; 87811; 94640; 94668; 94762; 97110; 97116; 97129; 97130; 97162; 97166; 97530; 97535; 97802; 99252; A4216; G0463